=== PATIENT | female | born 1955 | race Caucasian/White ===

== ENCOUNTER 2023-11-01 06:52 | Day surgery (SDC) | payer MEDICARE, SELFPAY ==
[2023-10-30 11:48] VITALS: BMI 33.8
--- NOTE | 2023-10-30 11:56 | HO.ANESPROP2 ---
Documented by User: Day Turcios NP 10/30/23 11:56 HPI - Anesthesia Eval Consult details Narrative: 67yo F for Colonoscopy PMFSH Past Medical History Medical History PTSD (post-traumatic stress disorder) Anxiety HTN (hypertension) Surgical History Surgical History History of bunionectomy History of back surgery History of Hx of colonoscopy Hx of cataract extraction Hx of hysterectomy Social History Social History Patient Tobacco Use Status: Former Tobacco user Are you DNR?: No Advance Directives: No Advance Directives Information Provided: Yes Nutrition Risks: No Nutritional Risk Meds Allergies Allergy/AdvReac Type Severity Reaction Status Date / Time codeine Allergy Unknown Verified 11/01/23 07:18 sulfamethoxazole Allergy Unknown Verified 11/01/23 07:18 [From Bactrim] trimethoprim [From Bactrim] Allergy Unknown Verified 11/01/23 07:18 Home Medications ?Medication ?Instructions ?Recorded ?Confirmed ?Last Taken ?Type dextroamphetamine-amphetamine 20 20 mg PO DAILY 10/30/23 10/30/23 Unknown History mg tablet (Adderall) lorazepam 1 mg tablet 1 mg PO BID 10/30/23 10/30/23 Unknown History metoprolol tartrate 25 mg tablet 25 mg PO DAILY 10/30/23 10/30/23 11/01/23 History naltrexone 1.5 mg capsule mg PO 10/30/23 10/30/23 Unknown History sertraline 50 mg tablet (Zoloft) 50 mg PO DAILY 10/30/23 10/30/23 Unknown History Exam Height,Weight and Vital Signs: Height 5 ft 5 in Weight 92.079 kg Assessment and Plan Assessment Anesthesia Assessment: Chart Reviewed Documented by User: Blaine Cain MD 11/01/23 07:46 PMF Past Medical History Medical History PTSD (post-traumatic stress disorder) Anxiety HTN (hypertension) Family History Family history of problems with anesthesia: No Surgical History Surgical History History of bunionectomy History of back surgery History of Hx of colonoscopy Hx of cataract extraction Hx of hysterectomy History of Problems with Anesthesia: No Social History Social History Patient Tobacco Use Status: Former Tobacco user Are you DNR?: No Advance Directives: No Advance Directives Information Provided: Yes Nutrition Risks: No Nutritional Risk Meds Allergies Allergy/AdvReac Type Severity Reaction Status Date / Time codeine Allergy Unknown Verified 11/01/23 07:18 sulfamethoxazole Allergy Unknown Verified 11/01/23 07:18 [From Bactrim] trimethoprim [From Bactrim] Allergy Unknown Verified 11/01/23 07:18 Home Medications ?Medication ?Instructions ?Recorded ?Confirmed ?Last Taken ?Type dextroamphetamine-amphetamine 20 20 mg PO DAILY 10/30/23 10/30/23 Unknown History mg tablet (Adderall) lorazepam 1 mg tablet 1 mg PO BID 10/30/23 10/30/23 Unknown History metoprolol tartrate 25 mg tablet 25 mg PO DAILY 10/30/23 10/30/23 11/01/23 History naltrexone 1.5 mg capsule mg PO 10/30/23 10/30/23 Unknown History sertraline 50 mg tablet (Zoloft) 50 mg PO DAILY 10/30/23 10/30/23 Unknown History Exam Airway Mallampati Class: III TM Dist: <=3cm Neck ROM: Full Loose/Missing/Broken Teeth: No Heart: rrr Lungs: cta b/l Assessment and Plan Final Anesthetic Review Family History of Problems with Anesthesia: No History of Problems with Anesthesia: No NPO: Yes ASA Class: II and III Final Preanesthetic Review: No Changes in Pt Med Stat, Meds/Allgs Chart Reviewed, Consent Obtained/Reviewed and Anes Risks/Benef Reviewed Patient Risk: Intermediate Procedure Risk: Intermediate Anesthetic Plan Anesthetic Plan: MAC: Disposition: Standard PACU
[2023-11-01] MEDS: Lactated Ringers 1,000 ML 100 ML IVCONT (07:09)
[2023-11-01 07:18] VITALS: BMI 33.1
[2023-11-01 07:33] VITALS: BP 136/74; PULSE 87; RESP 18; TEMP 36.6; O2SAT 96
--- NOTE | 2023-11-01 08:16 | P.HPSUR_ITS ---
Pre-Procedural Eval Section A - 24 Hr Update-Section A only Date of Service: 11/01/23 Section B - Complete if H&P > 30 days Chief Complaint: Encounter for screening for malignant neoplasm of Details of Present Illness: see H&P no changes Relevant Family History (Specify if Yes): No Relevant Social History: None Present Medications: see Short Stay Collaborative assessment Medical History: No relevant PMH History of Previous Operations: No relevant previous surgery Allergies: Allergies Allergy/AdvReac Type Severity Reaction Status Date / Time codeine Allergy Unknown Verified 11/01/23 07:18 sulfamethoxazole Allergy Unknown Verified 11/01/23 07:18 [From Bactrim] trimethoprim [From Bactrim] Allergy Unknown Verified 11/01/23 07:18 Review of Systems Sugical H&P ROS: Negative: Constitution, Cardiovascular, Respiratory, N eurological, Psychiatric, Hem-Onc, Allergic/Immunologic, Gastrointestinal, Genitourinary, Musculoskeletal, Integumentary, Endocrine and Eyes/Ears/Nose/Throat Exam Surgical H&P Exam: Normal: HEENT, Normal: Heart, Normal: Lungs, Normal: Extremities, Normal: Abdomen, Normal: Skin and Normal: Neurological Plan Diagnosis/Plan: Unchanged I have reviewed the history and physical and performed a pertinent physical examination on my patient. No changes have occurred unless specified. Time Spent With Patient Time: Total time managing care of this patient today ____ minutes.
[2023-11-01 08:54] VITALS: BP 107/66; PULSE 69; RESP 18; TEMP 36.4; O2SAT 97
--- NOTE | 2023-11-01 09:29 | OP_ITS ---
DATE OF SERVICE: 11/01/2023 SURGEON: Ap Sánchez MD INDICATIONS: Colon cancer screening. PREOPERATIVE DIAGNOSIS: POSTOPERATIVE DIAGNOSIS: PROCEDURE PERFORMED: Colonoscopy to the terminal ileum with biopsy. ESTIMATED BLOOD LOSS: COMPLICATIONS: ANESTHESIA: Monitored anesthesia care. ASSISTANTS: SPECIMENS: DESCRIPTION OF PROCEDURE: History and physical was performed. The risks and benefits of the procedure were explained to the patient. Informed consent was obtained. The patient was placed in the left lateral decubitus position. A digital rectal exam was performed and was found to be normal. The Olympus pediatric video colonoscope was introduced into the rectum and advanced to the cecum. The cecum was identified by transillumination, palpation, and identification of ileocecal valve. Examination was performed. The scope was removed. She tolerated the procedure well and was returned to the recovery area in stable condition. FINDINGS: The terminal ileum was examined and appeared normal. The visualized colonic mucosa was normal. The quality of the prep was good. A single polyp measuring less than 5 mm was identified at 70 cm from the anal verge. This were removed with a biopsy forceps. In the rectum were several hyperplastic appearing polyps. 2 of these were biopsied. Retroflexed examination showed some small internal hemorrhoids. IMPRESSION: Colon polyps. RECOMMENDATION: Follow up the biopsy results. MD RAUL Patricio/JULIAN / [id number] MTDD
== END 2023-11-01 10:00 | disposition home or self-care (01) ==
PROVIDERS: PCP Internal Medicine; Visit Provider Internal Medicine Gastroenterology
PROC: 0DJD8ZZ Inspection of Lower Intestinal Tract, Via Natural or Artificial Opening Endoscopic (ICD-10-PCS; CPT 45378; principal; 2023-11-01 08:40)
DX: Z12.11 Encounter for screening for malignant neoplasm of colon (principal); I10 Essential (primary) hypertension; J45.909 Unspecified asthma, uncomplicated; F41.9 Anxiety disorder, unspecified; F43.10 Post-traumatic stress disorder, unspecified; Z79.899 Other long term (current) drug therapy; Z87.891 Personal history of nicotine dependence; Z98.890 Other specified postprocedural states; Z86.16 Personal history of COVID-19
CPT/HCPCS: G0121; 88305; J2704

== ENCOUNTER 2024-01-24 14:23 | Outpatient (AMB) | payer MEDICARE, SELFPAY ==
--- NOTE | 2024-01-24 14:26 | MHC.PC.OV ---
Vital Signs 01/24/24 14:39 Height 5 ft 5 in Weight 205 lb 6 oz BMI 34.2 BP 122/68 Blood Pressure Location Rt brachial Position Sitting Pulse 87 Pulse Source Pulse Oximeter Temp 97.7 F Temp Source Temporal Artery Scan Intake Visit Reasons: New pa Intake Note: new patient visit. 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 Is last menstrual period known: No Post menopausal: No Patient : No Allergies sulfamethoxazole [From Bactrim] Allergy (Verified 01/24/24 14:30) Unknown trimethoprim [From Bactrim] Allergy (Verified 01/24/24 14:30) Unknown Medication List - Last Reconciled 01/26/24 by Patti Cardona MD albuterol sulfate 90 mcg/actuation inhalation benzonatate 100 mg PO TID PRN codeine-guaifenesin 10-100 mg/5 mL 10 mL PO Q4-6H PRN dextroamphetamine-amphetamine 20 mg (Adderall) 20 mg PO DAILY fluticasone propion-salmeterol 232-14 mcg/actuation 1 inh inhalation BID lorazepam 1 mg PO BID metoprolol tartrate 25 mg PO DAILY naltrexone mg PO sertraline (Zoloft) 50 mg PO DAILY Tobacco use date assessed: 01/24/24 Fall risk assessment: 2 + Falls in past year Last assessed Fall Risk: 01/24/24 Dental Screening Dental Screen Date: 01/24/24 Did you have a dental visit in the last 12 months?: Yes Did you have a dental problem in the last 6 months where you did not have access to dental care?: No Was dental information given to patient?: Patient has dentist HPI HPI Comments History of Present Illness Details This is a 68 year old female with a past medical history of long haul COVID, hypertension, presenting for follow up Recently hospitalized at [facility] 01/07-01/11/24. Presented with shortness of breast x4 days that had started fairly upbruptly. She had been on a long flight no long before the start of symptoms. +wheezing, +cough. She was tachycardic satting 92% room air. no fevers. dyspneic. Started on IV solumedrol CTA negative for pneumonia, PE. Intermittent left chest pain. EKG unremarkable. Slight top bump which resolved. Transitioned to oral prednisone. continue flovent, albuterol prn. She is improving but slowly. Saw Dr Greco. Has had PFTs in past. OLAMIDE means --Acute infection: 10/2019. Hospitalized 11/2019 at [facility] [place] due to hypoxic rsp faiulre due to COVID pneumonia and persistent high fevers. 106F for days. Severe HAs, muscle pain. Discharged on supplemental 02 --Subacute: Prolonged 02 need. [place] like she had suffered a stroke. Weakness, slow. HAs, sore throats, myalgias. Had MRI brain TTE. 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 NAD EYES: EOMI. Anicteric. HENT: Moist mucous membranes. No scleral icterus. No cervical lymphadenopathy. LUNGS: Clear to auscultation bilaterally. CARDIOVASCULAR: Regular rate and rhythm. No murmur. No JVD. ABDOMEN: Soft, non-tender +bs EXTREMITIES: No edema. Non-tender. SKIN: No rashes or lesions. Warm. NEUROLOGIC: No focal neurological deficits. CN II-XII grossly intact PSYCHIATRIC: Cooperative. Appropriate mood and affect [facility] Medical History (Updated 01/24/24 @ 14:51 by Yvonne Santos) FH: cholecystectomy Cataract (lens) fragments in eye following cataract surgery, left eye PTSD (post-traumatic stress disorder) Anxiety HTN (hypertension) Surgical History (Updated 01/24/24 @ 14:43 by Patti Cardona MD) History of bunionectomy History of back surgery History of Hx of colonoscopy Hx of cataract extraction Hx of hysterectomy Family History (Updated 01/24/24 @ 14:55 by Yvonne Santos) Brother FH: mental illness Mother Asthma High blood pressure High cholesterol Cardiovascular disease Cancer Father High blood pressure High cholesterol Diabetes Cardiovascular disease Thyroid disease Cancer Social History Housing: House Patient Tobacco Use Status: Former Tobacco user Tobacco use type: Cigarette e-Cigarette/Vaping Use: Never Used Second Hand Smoke Exposure: No service: No Current occupational status: retired Current occupational exposures/hazards: No Cognitive needs: No Hearing needs: No Vision needs: No Questionnaire PHQ-9 Over the last 2 weeks, how often have you been bothered by any of the following problems? 1. Little interest or pleasure in doing things: several days 2. Feeling down, depressed, or hopeless: several days 3. Trouble falling or staying asleep, or sleeping too much: nearly every day 4. Feeling tired or having little energy: more than half the days 5. Poor appetite or overeating: not at all 6. Feeling bad about yourself - or that you are a failure or have let yourself or your family down: several days 7. Trouble concentrating on things, such as reading the newspaper or watching television: more than half the days 9. Thoughts that you would be better off or of hurting yourself in some way: not at all Depression Screening Interpretation: Positive Depression Screening Follow-up: Existing condition Depression Screening Done: Yes 94053 - PHQ-9 Billing: Yes Source: Developed by Drs. Bg Guevara, Sofia Calvillo, Blake Clifford and colleagues, with an educational patrick from [employer]. Thrive Questionnaire Date Thrive assessed: 01/24/24 I am a: Patient What is your living situation today?: I have a steady place to live Within the past 12 months, did the food you bought not last and you didn't have the money to get more?: Never true Within the past 12 months, did you worry whether your food would run out before you got money to buy more?: Never true Do you have trouble paying for medicines?: No Do you have trouble getting transportation to medical appointments?: No Do you have trouble paying your heating and electricity bill?: No Do you have trouble taking care of your child, family member or friend?: No Do you have trouble with day-to-day activities such as bathing, preparing meals, shopping, managing finances, etc.?: No Are you currently unemployed and looking for a job?: No Are you interested in more education?: No Please select the resources that you would like help with: None Currently or been in a relationship where the following occur: No concerns reported THRIVE Score: 0 AUDIT C Alcohol Use Questionnaire (AUDIT-C) 1. How often do you have a drink containing alcohol?: 2-4 times a month 2. How many drinks containing alcohol do you have on a typical day when you are drinking?: 1 or 2 3. How often do you have six or more drinks on one occasion?: Never Total Score: 2 SUMAN-7 AMB Questionnaire SUMAN-7 Feeling nervous, anxious, or on edge: 3 = Nearly every day Not being able to stop or control worryin = Nearly every day Worrying too much about different things: 3 = Nearly every day Trouble relaxin = Nearly every day Being so restless that it is hard to sit still: 3 = Nearly every day Becoming easily annoyed or irritable: 3 = Nearly every day Feeling afraid as if something awful might happen: 1 = Several days Total SUMAN-7 score (0-4 normal; 5-9 mild; 10-14 moderate; 15-21 severe): 19 Source: Developed by Drs. Bg Guevara, Sofia Calvillo, Blake Clifford and colleagues, with an educational patrick from [employer]. SUMAN-7 Assessment Billing SUMAN-7 Assessment Tool: SUMAN-7 Assessment 17761 ACT Questionnaire In the past 4 weeks, how much of the time did your asthma keep you from getting as much done at work, school or at home?: All of the time During the past 4 weeks, how often have you had shortness of breath?: Once a day During the past 4 weeks, how often did your asthma symptoms wake you up at night or earlier than usual in the morning?: 4 or more nights a week During the past 4 weeks, how often have you had to use your rescue inhaler or nebulizer medication?: More than 3 times per day How would you rate your asthma control during the past 4 weeks?: Somewhat controlled Score: 8 Physical exam (Primary Care) Vital Signs: Last Vital Signs Temp 97.7 F 01/24/24 14:39 Pulse 87 01/24/24 14:39 BP 122/68 01/24/24 14:39 BMI result Body Mass Index 34.2 Tobacco/Smoking Status: Tobacco use Status Tobacco use date assessed 01/24/24 01/24/24 14:34 Patient Tobacco Use Status Former Tobacco user 01/24/24 14:34 Tobacco use type Cigarette 01/24/24 14:34 e-Cigarette/Vaping Use Never Used 01/24/24 14:34 Depression Screening Interpretation: Positive Depression Screening Follow-up: Existing condition Thrive Assessment: Date of Thrive Assessment Date Thrive assessed 01/24/24 01/24/24 14:47 Currently or been in a relationship where the following occur: No concerns reported Assessment and Plan Assessment & Plan (1) Anxiety: Code(s): F41.9 - Anxiety disorder, unspecified (2) HTN (hypertension): Code(s): I10 - Essential (primary) hypertension (3) COVID-19 german hayessi: Code(s): U09.9 - Post COVID-19 condition, unspecified (4) Hospital discharge follow-up: Code(s): Z09 - Encounter for follow-up examination after completed treatment for conditions other than malignant neoplasm Plan Hospitalization reviewed. Chart updated. Robitussin with codeine. Refilled tessalon perles. continue flovent, prn albuterol and follow up with pulmonary as needed Medications: New codeine-guaifenesin 10-100 mg/5 mL 10 mL PO Q4-6H PRN 200 mL 0RF cough benzonatate 100 mg PO TID PRN 30 caps 0RF cough Coding Level of Care Code TCM Mod MDM <= 14 Days Diagnoses Anxiety F41.9 HTN (hypertension) I10 COVID-19 german means U09.9 Hospital discharge follow-up Z09 Additional Codes SUMAN-7 Assessment Billing - SUMAN-7 Assessment Tool: SUMAN-7 Assessment [id number] ([id number])
[2024-01-24 14:39] VITALS: BP 122/68; PULSE 87; TEMP 36.5; BMI 34.2
== END 2024-01-24 15:14 | disposition home or self-care (01) ==
PROVIDERS: PCP Internal Medicine; Visit Provider Internal Medicine
DX: I10 Essential (primary) hypertension (principal); F41.9 Anxiety disorder, unspecified; U09.9 Post COVID-19 condition, unspecified; Z09 Encounter for follow-up examination after completed treatment for conditions other than malignant neoplasm
CPT/HCPCS: 99214

== ENCOUNTER 2024-07-03 10:56 | Outpatient (AMB) | payer MEDICARE, SELFPAY ==
--- NOTE | 2024-07-03 11:10 | MHC.PC.OV ---
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: No Allergies sulfamethoxazole [From Bactrim] Allergy (Verified 07/03/24 11:10) Unknown trimethoprim [From Bactrim] Allergy (Verified 07/03/24 11:10) Unknown Medication List - Last Reconciled 07/03/24 by Patti Cardona MD albuterol sulfate 90 mcg/actuation inhalation dextroamphetamine-amphetamine 20 mg (Adderall) 20 mg PO DAILY diclofenac sodium 75 mg PO BID PRN fluticasone propion-salmeterol 232-14 mcg/actuation 1 inh inhalation BID lorazepam 1 mg PO BID metoprolol tartrate 12.5 mg PO DAILY naltrexone mg PO sertraline (Zoloft) 50 mg PO DAILY Tobacco use date assessed: 01/24/24 Dental Screening Dental Screen Date: 01/24/24 HPI HPI Comments History of Present Illness Details This is a 68 year old female with a past medical history of long haul COVID, hypertension, presenting for AWV She was feeling going up until a month ago-was going to the In the past 2-3 weeks has had COVID reactivation-increased deep joint pain. On LDN-would be interested in increased dose COVID german rowleyyessi --Acute infection: 10/2019. Hospitalized 11/2019 at [facility] [place] due to hypoxic rsp faiulre due to COVID pneumonia and persistent high fevers. 106F for days. Severe HAs, muscle pain. Discharged on supplemental 02 --Subacute: Prolonged 02 need. [place] like she had suffered a stroke. Weakness, slow. HAs, sore throats, myalgias. Had MRI brain TTE. 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 Stable on current medications Hospitalized [facility] 01/07-01/11/24. Presented with shortness of breast x4 days that had started fairly upbruptly. She had been on a long flight no long before the start of symptoms. +wheezing, +cough. She was tachycardic satting 92% room air. no fevers. dyspneic. Started on IV solumedrol CTA negative for pneumonia, PE. Intermittent left chest pain. EKG unremarkable. Slight top bump which resolved. Transitioned to oral prednisone. continue flovent, albuterol prn. She is improving but slowly. Saw Dr Greco. Has had PFTs in past. LDCT 2022 Mammo UTD Colon cancer screening [facility] Care team updated- Neurologist, Dr Go has retired. Psych-Dr Christian ADAIR reviewed. No interval changes. Independent ADLs Poor exercise tolerance ROS see HPI PHYSICAL EXAM: GENERAL: Alert and oriented x 3. NAD EYES: EOMI. Anicteric. HENT: Moist mucous membranes. No scleral icterus. No cervical lymphadenopathy. LUNGS: Clear to auscultation bilaterally. CARDIOVASCULAR: Regular rate and rhythm. No murmur. No JVD. ABDOMEN: Soft, non-tender +bs EXTREMITIES: No edema. Non-tender. SKIN: No rashes or lesions. Warm. NEUROLOGIC: No focal neurological deficits. CN II-XII grossly intact PSYCHIATRIC: Cooperative. Appropriate mood and affect PFSH Medical History FH: cholecystectomy Cataract (lens) fragments in eye following cataract surgery, left eye PTSD (post-traumatic stress disorder) Anxiety HTN (hypertension) Surgical History History of bunionectomy History of back surgery History of Hx of colonoscopy Hx of cataract extraction Hx of hysterectomy Family History Brother FH: mental illness Mother Asthma High blood pressure High cholesterol Cardiovascular disease Cancer Father High blood pressure High cholesterol Diabetes Cardiovascular disease Thyroid disease Cancer Social History Housing: House Alcohol intake: current Patient Tobacco Use Status: Former Tobacco user Tobacco use type: Cigarette e-Cigarette/Vaping Use: Never Used Second Hand Smoke Exposure: No service: No Current occupational status: retired Current occupational exposures/hazards: No Cognitive needs: No Hearing needs: No Vision needs: No Questionnaire Thrive Questionnaire Date Thrive assessed: 01/24/24 Physical exam (Primary Care) Tobacco/Smoking Status: Tobacco use Status Tobacco use date assessed 01/24/24 07/03/24 11:12 Patient Tobacco Use Status Former Tobacco user 07/03/24 11:18 Tobacco use type Cigarette 07/03/24 11:18 e-Cigarette/Vaping Use Never Used 07/03/24 11:18 Thrive Assessment: Date of Thrive Assessment Date Thrive assessed 01/24/24 07/03/24 11:12 Coding Level of Care Code Est Pt Level 4 (90773) Diagnoses Encounter for annual wellness visit (AWV) in Medicare patient Z00.00 COVID-19 german means U09.9 Assessment & Plan Assessment & Plan (1) Encounter for annual wellness visit (AWV) in Medicare patient: Code(s): Z00.00 - Encounter for general adult medical examination without abnormal findings Category: Medical Plan: Care team updated HRA reviewed Fall risk negative To scanning (2) COVID-19 german means: Code(s): U09.9 - Post COVID-19 condition, unspecified Category: Medical Plan: Prednisone x one week Increase LDN Medications: New [naltrexone] 3 mg PO DAILY 3 ea 3RF post covid fatigue 90 days prednisone 40 mg (2 x 20 mg) PO DAILY 10 tabs 0RF 5 days
--- OUTSIDE RECORDS SUMMARY | 2024-07-08 07:46 | XMS_ITS ---
Author Organization [facility] Address [address] [place] [phone] Care Team Providers Care Fire Apparatus Sprinkler Inspector Name Role Phone Patti Cardona M.D. Primary Care Provider Unavail Ap Valdez Jr Unavailable ALLERGIES Allergen (clinical drug ingredient) Drug/Non Drug Allergy documented on EMR Reaction Allergy Type Onset Date Status codeine Codeine Sulfate Unknown Drug Allergy A ctive sulfamethoxazole / trimethoprim Bactrim Unknown Drug Allergy Active REASON FOR VISIT Patient presents today for a recall colonoscopy MEDICATIONS Medication SIG (Take, Route, Frequency, Duration) Notes Start Date End Date Status Metoprolol Tartrate 25 MG Oral for 90 Active Adderall 20 MG 1 tablet Orally Tw day 08/26/2023 Active MiraLax (colon prep) 17 GM/SCOOP mixed with Gatorade or Crystal Light Orally begin at 5:00 p.m. the day before the procedure for 1 day 08/26/2023 Active Naltrexone HCl (Pain) 1.5 MG as directed Orally 08/26/2023 Active Zoloft 50 MG 1 tablet Orally Once a day for 30 day(s) Active Ativan 1 MG 1 tablet at bedtime as needed Orally Once a day Active SOCIAL HISTORY Tobacco Use: Social History Observation Description Date Details (start date - stop date) Former Smoker NA - NA Sex Assigned At : Social History Observation Description Sex Assigned At Unknown Tobacco Use/Smoking Question Answer Notes Patient is a former smoker When did you stop smoking? 6 years ago How long has it been since you last smoked? 5-10 years Alcohol Screen Question Answer Notes Did you have a drink containing alcohol in the p ast year? No Points 0 Interpretation Negative VITAL SIGNS BMI 33.78 kg/m2 08/26/2023 Blood pressure systolic 000 mm Hg 08/26/19 24 Blood pressure diastolic 00 mm Hg 024 Height 65 in 08/26/2023 Temperature 97.7 degrees Fahrenheit 08/26/19 24 Weight 203 lbs 08/26/2023 Encounters Encounter Location Date Provider Diagnosis [facility] [address] [place] [address] 08/26/2023 Ap Sánchez Jr Colon cancer screening Z12.11 and Encounter for other preprocedural examination Z01.818 ASSESSMENTS Encounter Date Diagnosis Assessment Notes Treatment Notes Treatment Clinical Notes 08/26/2023 Colon cancer screening (ICD-10 - Z12.11) Colonoscopy material was printed 08/26/2023 Encounter for other preprocedural examination (ICD-10 - Z01.818) PLAN OF TREATMENT Medication Medication Name Sig Start Date Stop Date Notes MiraLax (colon prep) 17 GM/SCOOP mixed with Gatorade or Crystal Light Orally begin at 5:00 p.m. the day before the procedure for 1 day 08/26/2023 Treatment Notes Assessment Notes Colon cancer screening Colonoscopy mater ial was printed Future Test Test Name Order Date COLONOSCOPY 08/26/2023 Next Appt Details Follow Up: 1 Year, Reason: Progress Notes * Examination Category Sub-Category Detail Notes General Examination GENERAL APPEARANCE: in no ac kimberlyn distress HEAD: normocephalic EYES: sclera non-icteric NECK/THYROID: no lymphadenopathy HEART: S1, S2 normal, no mu rmurs CHEST: normal shape and exp ansion LUNGS: clear to auscultatio n bilaterally ABDOMEN: soft, nontender, non distended, bowel sounds present, no organomegaly SKIN: anicteric EXTREMITIES: no clubbing, cyanosi s, or edema PSYCH: cognitive function i ntact ORAL CAVITY: mucosa moist
--- OUTSIDE RECORDS SUMMARY | 2024-07-08 07:46 | XMS_ITS | Patient Health Record ---
Author Organization [facility] Address [address] [place] [phone] Care Team Providers Care Stage Electrician Name Role Phone Patti Cardona M.D. Primary Care Provider Ap De La Torre Jr Unavailable ALLERGIES Allergen (clinical drug ingredient) Drug/Non Drug Allergy documented on EMR Reaction Allergy Type Onset Date Status codeine Codeine Sulfate Unknown Drug Allergy A ctive sulfamethoxazole / trimethoprim Bactrim Unknown Drug Allergy Active RESULTS Component Value Reference Range Notes Pathology Reviewed date:11/20/2023 08:53:25 AM Interpretation: Performing Lab:[facility], [address] [place] [id number] Notes/Report: REASON FOR REFERRAL No Information MEDICATIONS Medication SIG (Take, Route, Frequency, Duration) Notes Start Date End Date Status Metoprolol Tartrate 25 MG Oral for 90 Active Zoloft 50 MG 1 tablet Orally Once a day for 30 day(s) Active Adderall 20 MG 1 tablet Orally Tw day 08/26/2023 Active Ativan 1 MG 1 tablet at bedtime as needed Orally Once a day Active MiraLax (colon prep) 17 GM/SCOOP mixed with Gatorade or Crystal Light Orally begin at 5:00 p.m. the day before the procedure for 1 day 08/26/2023 Active Naltrexone HCl (Pain) 1.5 MG as directed Orally 08/26/2023 Active IMMUNIZATIONS Vaccine Route Administration Date Status Comme nts Influenza Unknown 07/29/2023 Administered SOCIAL HISTORY Tobacco Use: Social History Observation [...] ast year? No Points 0 Interpretation Negative PROBLEMS Problem Type ICD Code Onset Dates Problem Status W/U Status Risk SNOMED Code Notes Problem Colon cancer screening (Z12.11) Active confirmed [id number] Problem Encounter for other preprocedural examination (Z01.818) Active confirmed [id number] VITAL SIGNS Temperature 97.7 degrees Fahrenheit 08/26/2023 Blood pressure diastolic 00 mm Hg 08/26/2023 Height 65 in 08/26/2023 Blood pressure systolic 000 mm Hg 08/26/2023 Weight 203 lbs 08/26/2023 BMI 33.78 kg/m2 08/26/2023 Encounters Encounter Location Date Provider Diagnosis [facility] [address], [place] [id number] 11/01/2023 Ap Sánchez Jr Encounter for screening colonoscopy Z12.11 and Colon polyps K63.5 [facility] [address] [place] [phone] 08/26/2023 Ap Sánchez Jr Colon cancer screening Z12.11 and Encounter for other preprocedural examination Z01.818 [facility] [address] [facility] [address] [place] [phone] 11/18/2023 Ap Sánchez Jr ASSESSMENTS Encounter Date Diagnosis Assessment Notes Treatment Notes Treatment Clinical Notes 11/01/2023 Encounter for screening colonoscopy (ICD-10 - Z12.11) 11/01/2023 Colon polyps (ICD-10 - K63.5) 08/26/2023 Colon cancer screening (ICD-10 - Z12.11) Colonoscopy material was printed 08/26/2023 Encounter for other preprocedural examination (ICD-10 - Z01.818) PLAN OF TREATMENT Future Test Test Name Order Date COLONOSCOPY 06/04/2019 COLONOSCOPY 08/26/2023 Insurance Providers Payer Name Payer Address Payer Phone Subscriber Number Group Number Insured Name Patient Relationship to Insured Coverage Start Date Coverage End Date [facility] [address] [place] [phone] [id number] YELITZA RESENDEZ Self - patient is the insured MEDICAL (GENERAL) HISTORY Medical History History ICD Code Hypertension Asthma Covid 19 infection, chronic neurologic a nd muscular symptoms Anxiety/depression, PTSD Colonoscopy 06/06 normal, ten-year follo wup Surgical History Surgery Date(Month/Year) hysterectomy back surgery section bunion cataract surgery Hospitalization History Reason Date(Month/Year) due to covid 2020
--- OUTSIDE RECORDS SUMMARY | 2024-07-08 07:46 | XMS_ITS ---
Author Organization [facility] Address [address] [place] [phone] Care Team Providers Care Bench Jeweler Name Role Phone Patti Cardona M.D. Primary Care Provider Unavail Ap Valdez Jr Unavailable REASON FOR VISIT screening Encounters Encounter Location Date Provider Diagnosis [facility] [address] [place] [phone] 11/01/2023 Ap Sánchez Jr Encounter for screening colonoscopy Z12.11 and Colon polyps K63.5 ASSESSMENTS Encounter Date Diagnosis Assessment Notes Treatment Notes Treatment Clinical Notes 11/01/2023 Encounter for screening colonoscopy (ICD-10 - Z12.11) 11/01/2023 Colon polyps (ICD-10 - K63.5) PLAN OF TREATMENT No Information
--- OUTSIDE RECORDS SUMMARY | 2024-07-08 07:46 | XMS_ITS ---
Author Organization [facility] Address [address] [place] [phone] Care Team Providers Care Soil Science Teacher Name Role Phone Patti Cardona M.D. Primary Care Provider Unavail Ap Valdez Jr Unavailable [phone] REASON FOR VISIT looking for results Encounters Encounter Location Date Provider Diagnosis [facility] [address] [place] [phone] 11/18/2023 Ap Sánchez Jr PLAN OF TREATMENT No Information
== END 2024-07-03 11:51 | disposition home or self-care (01) ==
PROVIDERS: PCP Internal Medicine; Visit Provider Internal Medicine
DX: Z00.00 Encounter for general adult medical examination without abnormal findings (principal); U09.9 Post COVID-19 condition, unspecified

== ENCOUNTER → 2024-07-03 10:56 | Outpatient (BNVA) | payer MEDICARE, SELFPAY | PROVIDERS: PCP Internal Medicine; Visit Provider Internal Medicine | DX: Z00.00 Encounter for general adult medical examination without abnormal findings (principal); U09.9 Post COVID-19 condition, unspecified | CPT/HCPCS: 99212 ==

== ENCOUNTER 2024-10-23 11:11 | Outpatient (AMB) | payer MEDICARE, SELFPAY ==
--- NOTE | 2024-10-23 11:31 | A.OFFPC_ITS ---
Vital Signs 3 10/23/24 11:34 Height 5 ft 5 in Weight 200 lb BMI 33.3 BP 104/64 Blood Pressure Location Rt brachial Position Sitting Respiration 12 Pulse 74 Pulse Source Pulse Oximeter Temp 98.3 F Temp Source Oral Pulse Oximetry (%) 98 Oxygen Delivery Method Room Air Intake Visit Reasons: Stitching remove Intake Note: Patient here to remove stitches. Mending Carrier Required: No Allergies sulfamethoxazole [From Bactrim] Allergy (Verified 10/23/24 11:31) Unknown trimethoprim [From Bactrim] Allergy (Verified 10/23/24 11:31) Unknown Medication List - Last Reconciled 10/23/24 by Yusra Julio, TAFFY CANDY MAKER- albuterol sulfate 90 mcg/actuation inhalation dextroamphetamine-amphetamine 20 mg (Adderall) 20 mg PO DAILY diclofenac sodium 75 mg PO BID PRN fluticasone propion-salmeterol 232-14 mcg/actuation 1 inh inhalation BID lorazepam 1 mg PO BID metoprolol tartrate 12.5 mg PO DAILY naltrexone mg PO [naltrexone 3 mg PO DAILY 90 days] prednisone 40 mg (2 x 20 mg) PO DAILY 5 days sertraline (Zoloft) 50 mg PO DAILY Tobacco use date assessed: 10/23/24 Fall risk assessment: 2 + Falls in past year Last assessed Fall Risk: 10/23/24 Dental Screening Dental Screen Date: 10/23/24 Did you have a dental visit in the last 12 months?: Yes Did you have a dental problem in the last 6 months where you did not have access to dental care?: No Was dental information given to patient?: Patient has dentist HPI HPI Comments 2 History of Present Illness0 Details History - The patient is a 68-year-old female pr esenting for suture removal left index finger s/p dog bite on Saturday She is UTD on Tdap Had 8 sutures placed RX for AB, started but did not complete d/t GI upset Denies signs of 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 Txt to Ortho for heads up and recs; will see early next week; the ortho team will arrange for this she should keep finger clean and dry monitor for s/sx of infection Consent Patient was informed and verbally consented to the use of an ambient scribe for clinic note documentation during this visit. Total time spent caring for the patient today was 30 minutes. This includes time spent before the visit reviewing the chart, time spent during the visit, and time spent after the visit on documentation, reviewing laboratory results, diagnostic imaging, medications, performing a medically necessary evaluation, counseling on diagnoses, care coordination, ordering appropriate tests, ordering appropriate medications, review of tests performed by other providers, reporting test results with the patient, communication with other healthcare providers. Exam: Radial pulse intact No drainage from lacs or sx of infection 8 sutures removed w/o incident; TAB and DCD applied discoloration to tip of finger pain over knuckle w/ palpation w/ some edema PFSH Medical History FH: cholecystectomy Cataract (lens) fragments in eye following cataract surgery, left eye PTSD (post-traumatic stress disorder) Anxiety HTN (hypertension) Surgical History History of bunionectomy History of back surgery History of Hx of colonoscopy Hx of cataract extraction Hx of hysterectomy Family History Brother FH: mental illness Mother Asthma High blood pressure High cholesterol Cardiovascular disease Cancer Father High blood pressure High cholesterol Diabetes Cardiovascular disease Thyroid disease Cancer Social History Housing: House Alcohol intake: current Patient Tobacco Use Status: Former Tobacco user Tobacco use type: Cigarette e-Cigarette/Vaping Use: Never Used Second Hand Smoke Exposure: No service: No Current occupational status: retired Current occupational exposures/hazards: No Cognitive needs: No Hearing needs: No Vision needs: No Questionnaire PHQ-9 Over the last 2 weeks, how often have you been bothered by any of the following problems? 1. Little interest or pleasure in doing things: not at all 2. Feeling down, depressed, or hopeless: not at all 3. Trouble falling or staying asleep, or sleeping too much: more than half the days 4. Feeling tired or having little energy: more than half the days 5. Poor appetite or overeating: not at all 6. Feeling bad about yourself - or that you are a failure or have let yourself or your family down: not at all 7. Trouble concentrating on things, such as reading the newspaper or watching television: several days 8. Moving or speaking so slowly that other people could have noticed. Or the opposite - being so fidgety or restless that you have been moving around a lot more than usual: not at all 9. Thoughts that you would be better off or of hurting yourself in some way: not at all Total score: 5 57888 - PHQ-9 Billing: Yes Source: Developed by Drs. Bg Guevara, Sofia Calvillo, Blake Clifford and colleagues, with an educational patrick from [employer]. Thrive Questionnaire Date Thrive assessed: 10/23/24 I am a: Patient What is your living situation today?: I have a steady place to live Within the past 12 months, did the food you bought not last and you didn't have the money to get more?: Never true Within the past 12 months, did you worry whether your food would run out before you got money to buy more?: Never true Do you have trouble paying for medicines?: No Do you have trouble getting transportation to medical appointments?: No Do you have trouble paying your heating and electricity bill?: No Do you have trouble taking care of your child, family member or friend?: No Do you have trouble with day-to-day activities such as bathing, preparing meals, shopping, managing finances, etc.?: No Are you currently unemployed and looking for a job?: I choose not to answer this question Are you interested in more education?: No Please select the resources that you would like help with: None Currently or been in a relationship where the following occur: No concerns reported THRIVE Score: 0 AUDIT C Alcohol Use Questionnaire (AUDIT-C) 1. How often do you have a drink containing alcohol?: Monthly or less 2. How many drinks containing alcohol do you have on a typical day when you are drinking?: 1 or 2 3. How often do you have six or more drinks on one occasion?: Never Total Score: 1 SUMAN-7 AMB Questionnaire SUMAN-7 Date SUMAN - 7 assessed: 10/23/24 Feeling nervous, anxious, or on edge: 0 = Not at all Not being able to stop or control worryin = Several days Worrying too much about different things: 1 = Several days Trouble relaxin = Several days Being so restless that it is hard to sit still: 1 = Several days Becoming easily annoyed or irritable: 1 = Several days Feeling afraid as if something awful might happen: 0 = Not at all Total SUMAN-7 score (0-4 normal; 5-9 mild; 10-14 moderate; 15-21 severe): 5 Source: Developed by Drs. Bg Guevara, Sofia Calvillo, Blake Clifford and colleagues, with an educational patrick from [employer]. SUMAN-7 Assessment Billing SUMAN-7 Assessment Tool: SUMAN-7 Assessment 25166 Physical exam (Primary Care) Vital Signs: Last Vital Signs Temp 98.3 F 10/23/24 11:34 Pulse 74 10/23/24 11:34 Resp 12 10/23/24 11:34 BP 104/64 10/23/24 11:34 Pulse Ox 98 10/23/24 11:34 Oxygen Delivery Method Room Air 10/23/24 11:34 BMI result Body Mass Index 33.3 Tobacco/Smoking Status: Tobacco use Status Tobacco use date assessed 10/23/24 10/23/24 11:34 Patient Tobacco Use Status Former Tobacco user 10/23/24 11:34 Tobacco use type Cigarette 10/23/24 11:34 e-Cigarette/Vaping Use Never Used 10/23/24 11:34 PHQ-9: PHQ-9 Score PHQ-9: Total score 5 10/23/24 12:23 Thrive Assessment: Date of Thrive Assessment Date Thrive assessed 10/23/24 10/23/24 11:34 Currently or been in a relationship where the following occur: No concerns reported Coding Level of Care Code Est Pt Level 4 (44658) Complex EM visit Add On G2211 Diagnoses Dog bite of finger, subsequent encounter S61.259D; W54.0XXD Encounter type: subsequent encounter Visit for suture removal Z48.02 Additional Codes SUMAN-7 Assessment Billing - SUMAN-7 Assessment Tool: SUMAN-7 Assessment 38396 ([id number]) PHQ-9 - 10916 - PHQ-9 Billing: Yes ([id number]) Assessment & Plan Assessment & Plan (1) Dog bite of finger: Code(s): S61.259A - Open bite of unspecified finger without damage to nail, initial encounter; W54.0XXA - Bitten by dog, initial encounter Category: Medical Qualifiers: Encounter type: subsequent encounter Qualified Code(s): S61.259D - Open bite of unspecified finger without damage to nail, subsequent encounter; W54.0XXD - Bitten by dog, subsequent encounter (2) Visit for suture removal: Code(s): Z48.02 - Encounter for removal of sutures Category: Medical Plan . Orders: Referrals 2 Hand Surgery Referral S61.259A - Open bite of unspecified finger without damage to nail, initial encounter, W54.0XXA - Bitten by dog, initial encounter
[2024-10-23 11:34] VITALS: BP 104/64; PULSE 74; RESP 12; TEMP 36.8; O2SAT 98; BMI 33.3
== END 2024-10-23 14:05 | disposition home or self-care (01) ==
LOC: HO.HMCFM 11:12
PROVIDERS: PCP Internal Medicine; Visit Provider Nurse Practitioner Family
DX: S61.259D Open bite of unspecified finger without damage to nail, subsequent encounter (principal); W54.0XXD Bitten by dog, subsequent encounter; Z48.02 Encounter for removal of sutures

== ENCOUNTER → 2024-10-23 11:11 | Outpatient (BNVA) | payer MEDICARE, SELFPAY | PROVIDERS: PCP Internal Medicine; Visit Provider Nurse Practitioner Family | DX: Z48.02 Encounter for removal of sutures (principal); S61.251D Open bite of left index finger without damage to nail, subsequent encounter; W54.0XXD Bitten by dog, subsequent encounter | CPT/HCPCS: 96127; 99212 ==

== ENCOUNTER 2024-10-27 09:45 | Outpatient (AMB) | payer MEDICARE, SELFPAY ==
--- NOTE | 2024-10-27 10:06 | A.OFFVIS_ITS ---
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 States she volunteered for [employer] and while working with the dog she was bite. States she was seen at [facility] ED where she received 8 stitches which was removed 10/23/24 with her PCP. Currently states she has swelling, she is not able to bend her finger, shooting pain to her DIP. She also has numbness and tingling which she did not have prior to injury. Xrays updated in office. She is currently taking ABX. 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 She was seen in the [facility] ED and sutured. Her sutures were removed by her PCP on 10/23/24. She has been taking keflex. She complains of pain, swelling, and an inability to bend her index finger fully. She has less pain to her middle & ring fingers She also says she has new numbness in her index finger, which was not present before her injury. 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 [facility] Medical History FH: cholecystectomy Cataract (lens) fragments in eye following cataract surgery, left eye PTSD (post-traumatic stress disorder) Anxiety HTN (hypertension) Surgical History History of bunionectomy History of back surgery History of Hx of colonoscopy Hx of cataract extraction Hx of hysterectomy Family History Brother FH: mental illness Mother Asthma High blood pressure High cholesterol Cardiovascular disease Cancer Father High blood pressure High cholesterol Diabetes Cardiovascular disease Thyroid disease Cancer Social History Housing: House Alcohol intake: current Patient Tobacco Use Status: Former Tobacco user Tobacco use type: Cigarette e-Cigarette/Vaping Use: Never Used Second Hand Smoke Exposure: No service: No Current occupational status: retired 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 Current occupational exposures/hazards: No Cognitive needs: No Hearing needs: No Vision needs: No Review of Systems Const All systems reviewed & are unremarkable except as noted in HPI and below Physical Exam Vital Signs: BMI result Body Mass Index 32.4 Const General: cooperative, healthy appearing and no acute distress Orientation/consciousness: patient oriented x3 HEENT Head: Yes normocephalic and Yes atraumatic Eyes EOM: EOMs intact bilaterally Resp Effort & Inspection: normal respiratory effort and able to speak in complete sentences Cardio Jugular venous distension: no JVD Skin General skin exam: turgor normal Rashes: no rashes Neuro General: patient oriented x3 Extrem Other: Evaluation of Upper Extremity: The patient is alert, oriented, and in no acute distress Neuro: Median, Ulnar, Radial nerves motor and sensory intact and sensation is normal to the tips of all digits, except for some decreased subjective sensation to the radial digital nerve distribution of the index finger Vascular: Cap refill brisk ROM: She can make a fist and extend all her digits Good FDS & FDP tendon function to all fingers Skin: She has ~3-4 bite wounds to the volar radial side of the index finger One on the volar radial side of the middle finger, just proximal to DIP joint Dorsal side of the ring finger, just proximal to DIP joint General: No Ecchymosis. No Erythema or evidence of infection. Radiographs: 3 views of the left hand were taken and viewed by me today in clinic. They show only a possible nondisplaced fracture of the ulnar base of the distal phalanx of the left index finger. Otherwise no fractures or dislocatons Psych Appearance: grossly normal Affect: normal affect Attitude: cooperative Assessment & Plan Assessment & Plan (1) Dog bite of finger: Comment: L IF, MF, RF Code(s): S61.259A - Open bite of unspecified finger without damage to nail, initial enco unter; W54.0XXA - Bitten by dog, initial encounter Category: Medical Qualifiers: Encounter type: subsequent encounter Qualified Code(s): S61.259D - Open bite of unspecified finger without damage to nail, subsequent encounter; W54.0XXD - Bitten by dog, subsequent encounter (2) Numbness and tingling in left hand: Comment: L IF Code(s): R20.0 - Anesthesia of skin; R20.2 - Paresthesia of skin Category: Medical Plan Assessment & Plan: 1. Left index, middle, and ring finger dog bite injuries, DOI: 10/16/24 Sutured in ED Sutures removed by PCP 10/23/24 2. Left index finger numbness, acute Began following dog bite injury Improving with time She appears to be healing well with no evidence of infection today. No operative indications today. I educated her about proper wound care I explained the signs and symptoms of infection, if the patient develops any new or worsening erythema, drainage, pain, or warmth they should contact the clinic or attend the ED. She will continue to take her Abx as instructed She can cover this when out of the house but should leave this open to the air to remain dry. She can apply some Abx ointment. I discussed activity modifications, she is to lift nothing heavier than a cellphone for the next 2 weeks She will perform gentle ROM exercises at home She should avoid any underwater activities for the next 3 days She should gently massage about the incision site to reduce the risk of hypersensitivity She can follow up prn Scribed for Lisa Campbell MD by Robert Linares, medical technologist chief, on 10/27/24 at 10:15 AM, EST. Orders: Orders XR hand LT min 3V Today M79.642 - Pain in left hand Coding Level of Care Code New Pt Level 3 (75778) Diagnoses Dog bite of finger, subsequent encounter S61.259D; W54.0XXD Encounter type: subsequent encounter Numbness and tingling in left hand R20.0; R20.2
[2024-10-27 10:08] VITALS: BMI 32.4
--- OUTSIDE RECORDS SUMMARY | 2024-10-27 11:14 | XMS_ITS ---
Author Organization [facility] Address [address] [place] [phone] Care Team Providers Care Metal Checker Name Role Phone Dulce Vickers, Patti Primary Care Provider Ap De La Torre Jr REASON FOR VISIT screening Encounters Encounter Location Date Provider Diagnosis [facility] [place] [facility] [address] [place] [phone] 11/01/2023 Ap Sánchez Jr Encounter for screening colonoscopy Z12.11 and Colon polyps K63.5 Assessments Encounter Date Diagnosis (ICD Code) Assessment Notes Treatment Notes Treatment Clinical Notes Section Notes 11/01/2023 Encounter for screening colonoscopy (ICD-10 - Z12.11) 11/01/2023 Colon polyps (ICD-10 - K63.5) Plan Of Treatment No Information Progress Notes * YELITZA RESENDEZDOB:1955 (68 yo F)Acc No.[id number]:11/01/2023 COLON WITH MAC Patient:?RICHIEJOHNYELITZA Provider:?Ap Sánchez MD :1955???Age:68 Y???Sex:Female D ate:11/01/2023 Address:[address] [place] [address] Pcp:Patti Cardona M.D. Subjective: * Chief Complaints: * ???1. Screening. * Medical History:? Objective: * Vitals:? Assessment: * Assessment: 1.?Encounter for screening c olonoscopy - Z12.11 (Primary)???2.?Colon polyps - K63.5??? Plan: * Treatment: * Procedure Codes:?72621 COLON OSCOPY AND BIOPSY * * The named appointment provid er may or may not be the originator of this progress note, and it is not deemed complete until electronically signed by the appointment provider. Sign off status: Pending * Provider:?Ap Sánchez MD Date:?0 11/01/2023 Generated for Fito long/Radha/Zelda on:?10/27/2024 11:14 AM EDT
--- OUTSIDE RECORDS SUMMARY | 2024-10-27 11:14 | XMS_ITS | Clinical Summary ---
Author Organization [facility] Address [address] [place] [address] Phone Care Team Providers Care Corporate Communications Associate Name Role Phone Patti Cardona MD Primary Care Provider [phone] Encounters Date Type Department Care Team Description 10/17/2024 7:32 AM EDT - 10/17/2024 11:59 PM EDT Hospital Encounter [facility] CT Scan [address] [place] [phone] Encounter for screening for malignant neoplasm of respiratory organs; Personal history of nicotine dependence Discharge Disposition: Home or Self Care 09/29/2024 Telephone Lung Screening Program - [place] [address] [phone] Marlyn Calvillo [place] Appointment (1st Notification) 09/23/2024 2:14 PM EST - 09/23/2024 11:59 PM EST Hospital Encounter [facility] at [address] [phone] Encounter for screening mammogram for breast cancer Discharge Disposition: Home or Self Care from Last 3 Months Family History Medical History Relation Name Comments Breast cancer Maternal Grandmother Relation Name Status Comments Maternal Grandmother Social History Tobacco Use Types Packs/Day Years Used Date Smoking Tobacco: Never Assessed Comments No Sex and Gender Information Value Date Recorded Sex Assigned at Female 09/18/2024 11:48 AM EST Legal Sex Female 8:12 PM EST Gender Identity Female 09/18/2024 11:48 AM EST Sexual Orientation Choose not to disclose 2024 11:48 AM EST Obstetrics History Para Term AB IAB SAB Ectopic Multiple Livin g Live Births 3 Last Filed Vital Signs Vital Sign Reading Time Taken Comments Blood Pressure - - Pulse - - Temperature - - Respiratory Rate - - Oxygen Saturation - - Inhaled Oxygen Concentration - - Weight 88.5 kg (195 lb) 09/23/2024 2:34 PM EST Height 165.1 cm (5' 5 ) 09/23/2024 2:34 PM EST Body Mass Index 32.45 09/23/2024 2:34 PM EST Plan of Treatment Health Maintenance Due Date Last Done Comments RSV Immunization Patients 60+ Years Old (1 - Risk 60-74 years 1-dose series) 2017 Cholesterol Screening (Lipid Panel) 06/30/2022 Colorectal Cancer Screening: Colonoscopy 06/30/2022 Depression Screening 06/30/2022 Hepatitis C Screening 06/30/2022 Medicare Annual Wellness Visit 06/30/2022 Osteoporosis Screening (Bone Density Screening) 06/30/2022 Social Influencers of Health Screening 06/30/2022 Falls Risk Assessment 2022 COVID-19 Vaccine ( season) 2024 10/10/2020, 09/17/2020, 08/30/2020 Hypertension/CHF/CAD Annual BMP Blood Test 09/23/2024 Breast Cancer Screening 09/23/2026 09/23/19, 08/19/2023, 07/25/2022, Additional history exists DTaP,Tdap,and Td Vaccines (2 - Td or Tdap) 10/16/2034 10/16/2024 Zoster Vaccines Completed 06/12/2021, 0807/2020, 03/27/2021 Pneumococcal Vaccine: 50+ Years Completed 04/26/2023, 12/02/2019 Influenza Vaccine Completed 09/04/2024, , 03/28/2020 HIB Vaccines Aged Out No longer eligi ble based on patient's age to complete this topic HPV Vaccines Aged Out No longer eligi ble based on patient's age to complete this topic Hepatitis A Vaccines Aged Out No long er eligible based on patient's age to complete this topic Hepatitis B Vaccines Aged Out No long er eligible based on patient's age to complete this topic IPV Vaccines Aged Out No longer eligi ble based on patient's age to complete this topic MMR Vaccines Aged Out No longer eligi ble based on patient's age to complete this topic Meningococcal ACWY Vaccine Aged Out N o longer eligible based on patient's age to complete this topic Meningococcal B Vacine Aged Out No lo nger eligible based on patient's age to complete this topic RSV Immunization Patients Under 20 months Aged Out No longer eligible based on patient's age to complete this topic Varicella Vaccines Aged Out No longer eligible based on patient's age to complete this topic Procedures Procedure Name Priority Date/Time Associated Diagnosis Comments CT LUNG SCREENING Routine 10/17/2024 7:3 9 AM EDT Encounter for screening for malignant neoplasm of respiratory organs Personal history of nicotine dependence MG MAMMO DIGITAL SCREENING W LUCIANO BILAT Routine 09/23/2024 2:50 PM EST Encounter for screening mammogram for breast cancer from Last 3 Months Results * CT Lung Screening (10/17/2024 7:39 AM EDT) Anatomical Region Laterality Modality Chest Computed Tomogra phy 10/19/2024 9:37 AM EDT Impressions 10/19/2024 9:49 AM EDT Impression: No suspicious developing pulmonary nodule. No significant change. Lung-RADS Category: ??Lung-RADS 2: Nodule(s) with benign appearance or behavior. Continue annual screening with Low Dose Chest CT in 12 months. Telerad BREANNA ([id number]) -------- FINAL REPORT -------- Dictated By: Muna Giraldo Dictated Date: 10/19/2024 09:37 ET Assigned Physician: Muna Giraldo Reviewed and Electronically Signed By: Muna Giraldo Signed Date: 10/19/2024 09:49 ET Workstation ID: [id number] Transcribed By: Self Edit Transcribed Date: 10/19/2024 09:37 ET Narrative 10/19/2024 9:49 AM EDT History: ??68 year-old 42 pack-year former smoker, asymptomatic, for lung cancer screening. Quit smoking 12 years ago. Comparison: 10/13/23 Technique: Helical volumetric imaging of the thorax was performed, using low- dose technique, without IV contrast. DLP: 153.48 mGy/cm ??CTDIvol: 4.83 mGy GE Linkpasspeed VCT Iterative reconstruction technique Findings: Lungs and Airways: The trachea and central bronchial tree remains patent. Rather homogeneously calcified nodules are consistent with old granulomatous disease. Few scattered sub-4 mm solid, noncalcified nodules are unchanged. No suspicious developing nodule is seen. Pleura: No pleural or pericardial effusions are identified. Base of neck, mediastinum and heart: The heart remains normal in size. Minimal atherosclerotic calcification is seen in the aortic arch. A 10 mm peripherally calcified nodule in the right thyroid lobe is again noted. No developing thoracic lymphadenopathy is seen. Soft tissues: The overlying soft tissues are unremarkable. Abdomen: This study was performed without contrast and with lower than standard dose. These factors reduce the sensitivity for detection of small lesions in the upper abdomen. Cholecystectomy clips are noted. Procedure Note Muna Giraldo MD - 10/19/2024 History: 68 year-old 42 pack-year former smoker, asymptomatic, for lungcancer screening. Quit smoking 12 years ago. Comparison: 10/13/23 Technique: Helical volumetric imaging of the thorax was performed, usinglow-dose technique, without IV contrast. DLP: 153.48 mGy/cm CTDIvol: 4.83 mGy BotanoCappeed VCT Iterative reconstruction technique Findings: Lungs and Airways: The trachea and central bronchial tree remains patent.Rather homogeneously calcified nodules are consistent with oldgranulomatous disease. Few scattered sub-4 mm solid, noncalcified nodulesare unchanged. No suspicious developing nodule is seen. Pleura: No pleural or pericardial effusions are identified. Base of neck, mediastinum and heart: The heart remains normal in size.Minimal atherosclerotic calcification is seen in the aortic arch. A 10 mmperipherally calcified nodule in the right thyroid lobe is again noted. Nodeveloping thoracic lymphadenopathy is seen. Soft tissues: The overlying soft tissues are unremarkable. Abdomen: This study was performed without contrast and with lower thanstandard dose. These factors reduce the sensitivity for detection of smalllesions in the upper abdomen. Cholecystectomy clips are noted. IMPRESSION: Impression: No suspicious developing pulmonary nodule. No significant change. Lung-RADS Category: Lung-RADS 2: Nodule(s) with benign appearance orbehavior. Continue annual screening with Low Dose Chest CT in 12 months. Telerad PA ([id number]) -------- FINAL REPORT -------- Dictated By: Muna Giraldo Dictated Date: 10/19/2024 09:37 ET Assigned Physician: Muna Giraldo Reviewed and Electronically Signed By: Muna Giraldo Signed Date: 10/19/2024 09:49 ET Workstation ID: [id number] Transcribed By: Self Edit Transcribed Date: 10/19/2024 09:37 ET us Sunita Denney MD IMG CT PROCEDURES Final Result * [facility] Mammo Digital Screening w Luciano bilat (09/23/2024 2:50 PM EST) Anatomical Region Laterality Modality Breast Bilateral Mammography 09/23/2024 5:36 PM EST Impressions 09/23/2024 5:43 PM EST No mammographic evidence of malignancy. ?? No suspicious interval change. A negative mammogram in the presence of a clinically suspicious palpable abnormality does not preclude the possibility of malignancy or alter the indications for biopsy. ASSESSMENT: ?? BI-RADS 1: NEGATIVE RECOMMENDATION(S): 1: Routine screening mammogram BILATERAL in 1 year. -------- FINAL REPORT -------- Dictated By: Charlie Suresh Dictated Date: 09/23/2024 17:36 ET Assigned Physician: Charlie Suresh Reviewed and Electronically Signed By: Charlie Suresh Signed Date: 09/23/2024 17:43 ET Workstation ID: [id number] Transcribed By: Self Edit Transcribed Date: 09/23/2024 17:36 ET Narrative 09/23/2024 5:43 PM EST EXAM: ??SCREENING MAMMOGRAPHY, BILATERAL HISTORY: ??SCREENING. ??Maternal grandmother with history of breast cancer. COMPARISON: ??08/19/2023, 07/25/2022, 07/20/2021, 06/17/2020 TECHNIQUE: Synthesized CC and MLO projections of each breast. ??Tomosynthesis of each breast in the CC and MLO projections. ADDITIONAL IMAGING: None Computer-aided detection was employed with the iCAD ??profound AI 3-D. TISSUE DENSITY: There are scattered areas of fibroglandular density. (BI-RADS category B) FINDINGS: RIGHT BREAST: No suspicious mass. No suspicious calcification. No distortion. ?? No additional suspicious right breast findings LEFT BREAST: No suspicious mass. No suspicious calcification. No distortion. ?? No additional suspicious left breast findings Procedure Note Charlie Suresh MD - 09/23/2024 EXAM: SCREENING MAMMOGRAPHY, BILATERAL HISTORY: SCREENING. Maternal grandmother with history of breastcancer. COMPARISON: 08/19/2023, 07/25/2022, 07/20/2021, 06/17/2020 TECHNIQUE: Synthesized CC and MLO projections of each breast.Tomosynthesis of each breast in the CC and MLO projections. ADDITIONAL IMAGING: None Computer-aided detection was employed with the iCAD profound AI 3-D. TISSUE DENSITY: There are scattered areas of fibroglandular density.(BI-RADS category B) FINDINGS: RIGHT BREAST: No suspicious mass. No suspicious calcification. No distortion. Noadditional suspicious right breast findings LEFT BREAST: No suspicious mass. No suspicious calcification. No distortion. Noadditional suspicious left breast findings IMPRESSION: No mammographic evidence of malignancy. No suspicious interval change. A negative mammogram in the presence of a clinically suspicious palpableabnormality does not preclude the possibility of malignancy or alter theindications for biopsy. ASSESSMENT: BI-RADS 1: NEGATIVE RECOMMENDATION(S): 1: Routine screening mammogram BILATERAL in 1 year. -------- FINAL REPORT -------- Dictated By: Charlie Suresh Dictated Date: 09/23/2024 17:36 ET Assigned Physician: Charlie Suresh Reviewed and Electronically Signed By: Charlie Suresh Signed Date: 09/23/2024 17:43 ET Workstation ID: [id number] Transcribed By: Self Edit Transcribed Date: 09/23/2024 17:36 ET us Self Referral Sppl IMG BI PROCEDURES Final Resul t from Last 3 Months Insurance [employer] Care Teams Corporate Communications Associate Relationship Specialty Start Date End Date Patti Cardona MD [address] [place] [id number] PCP - General Internal Medicine 09/23/24
--- OUTSIDE RECORDS SUMMARY | 2024-10-27 11:14 | XMS_ITS ---
Author Organization [facility] Address [address] [place] [phone] Care Team Providers Care Watermelon Harvesting Supervisor Name Role Phone Patti Cardona M.D. Primary Care Provider Ap De La Torre Jr REASON FOR VISIT looking for results Encounters Encounter Location Date Provider Diagnosis [facility] [address] [place] [phone] 11/18/2023 Ap Sánchez Jr Plan Of Treatment No Information Progress Notes * YELITZA RESENDEZDOB:1955 (68 yo F)Acc No.[id number]:11/18/2023 Patient:?YELITZA RESENDEZ :1955???Age:68 Y???Sex:Female Address:[address] [place] [phone] * true * Date:? Generated for Fito long/Radha/eTransmitting on:?10/27/2024 11:14 AM EDT
--- OUTSIDE RECORDS SUMMARY | 2024-10-27 11:14 | XMS_ITS | Patient Health Record ---
Author Organization [facility] Address [address] [place] [phone] Care Team Providers Care Cottage Parent Name Role Phone Patti Cardona M.D. Primary Care Provider Ap De La Torre Jr Allergies Allergen (clinical drug ingredient) Drug/Non Drug Allergy documented on EMR Reaction Allergy Type Onset Date Status codeine Codeine Sulfate Unknown Drug Allergy A ctive sulfamethoxazole / trimethoprim Bactrim Unknown Drug Allergy Active Results Component Value Reference Range Notes Pathology Reviewed date:11/20/2023 08:53:25 AM Interpretation: Performing Lab:[facility], [address] [place] [phone] Notes/Report: Name: Monica Kingna Age/Sex: 68/F : 1955 Unit#: [id number] Attend Dr: Ap Sánchez MD Re11/01/23 Status : [facility] Location: [facility] Disch: SPEC : [id number] RECD : 11/01/23 STATUS: IMANI BALES NUM: [id number] JOSÉ ANTONIO: 11/01/[address] [facility] [address]: Ap Sánchez MD ENTERED: 11/01/23 TYPE: Surgical OTHR DR: Patti Cardona ORDERED: HE Stain/6, Gross Micro L4/2 Diagnosis A. Colon, at 70 cm, polyp: Tubular adenoma; negative for high-grade dysplasia and carcinoma. B. Colon, rectal katya yps: Hyperplastic polyps (2 pieces). Clinical History Pre-Op Dx: Screening Post-Op Dx: Colon polyps Microscopic Description Microscopic sections reviewed. Material Received A. Polyp at 70 cm B. Rectal polyps Gross Description Received in 2 parts. Part A: Received in formalin labeled ?polyp at 70 cm? are 2 arzate-pink irregular tissue fragments each measu ring 0.25 cm, submitted in toto in a cassette labeled A. Part B: Received in formalin labeled ?rectal polyps? are 3 keller-arzate irregular tissue fragments ranging fr om 0.15-0.2 cm, submitted in toto in a cassette labeled B. CEDS Copies To: Ap Sánchez MD [address] [place] [address] [address] [place] [address] Patti Cardona [address] [place], [place] [id number] CONTINUED ON NEXT PAGE Name: Carolyn King Age/Sex: 68/F : 1955 Unit#: [id number] Attend Dr: Ap Sánchez MD Re11/01/23 Status : [facility] Location: [facility] Disch: SPEC : [id number] RECD : 11/01/23 STATUS: IMANI BALES NUM: [id number] JOSÉ ANTONIO: 11/01/[address] [facility] [address]: Ap Sánchez MD ENTERED: 11/01/23 SP TYPE: Surgical OTHR DR: Patti Cardona ORDERED: STEFFANY Stain/6, Gross Micro L4/2 Copies To: (Continued) [email or web address] Signed (si [email or web address] on file) Gloria Gooden 11/04/23 1247 END OF REPORT Reason For Referral No Information Medications Medication SIG (Take, Route, Frequency, Duration) Notes Start Date End Date Status Metoprolol Tartrate 25 MG Oral for 90 Active Zoloft 50 MG 1 tablet Orally Once a day for 30 day(s) Active Adderall 20 MG 1 tablet Orally [facility] day 08/26/2023 Active Ativan 1 MG 1 tablet at bedtime as needed Orally Once a day Active MiraLax (colon prep) 17 GM/SCOOP mixed with Gatorade or Crystal Light Orally begin at 5:00 p.m. the day before the procedure for 1 day 08/26/2023 Active Naltrexone HCl (Pain) 1.5 MG as directed Orally 08/26/2023 Active Immunizations Vaccine Route Administration Date Status Comme nts Influenza Unknown 07/29/2023 Administered Social History Tobacco Use: Social History Observation Description Date Details (start date - stop date) Former Smoker NA - NA Tobacco Use/Smoking Question Answer Notes Patient is a former smoker When did you stop smoking? 6 years ago How long has it been since you last smoked? 5-10 years Alcohol Screen Question Answer Notes Did you have a drink containing alcohol in the p ast year? No Points 0 Interpretation Negative Section Notes: very occasional glass of win e very occasional glass of win e Problems Problem Type SNOMED Code ICD Code Onset Dates Problem Status W/U Status Risk Notes Problem 434501668 Colon cancer screening (Z12.11) Active confirmed Problem 181641475 Encounter for other preprocedural examination (Z01.818) Active confirmed Encounters Encounter Location Date Provider Diagnosis [facility] Outpatient [address] [place], [place] [phone] 11/01/2023 Ap Sánchez Jr Encounter for screening colonoscopy Z12.11 and Colon polyps K63.5 [facility] [address] [place] [address] 11/18/2023 Ap Sánchez Jr Assessments Encounter Date Diagnosis (ICD Code) Assessment Notes Treatment Notes Treatment Clinical Notes Section Notes 11/01/2023 Encounter for screening colonoscopy (ICD-10 - Z12.11) 11/01/2023 Colon polyps (ICD-10 - K63.5) Plan Of Treatment Future Test Test Name Order Date COLONOSCOPY 06/04/2019 COLONOSCOPY 08/26/2023 Insurance Providers Payer Name Payer Address Payer Phone Subscriber Number Group Number Insured Name Patient Relationship to Insured Coverage Start Date Coverage End Date [facility] [address] [place] [phone] [id number] CAROLYN KING Self - patient is the insured Medical (General) History Medical History History ICD Code Hypertension Asthma Covid 19 infection, chronic neurologic a nd muscular symptoms Anxiety/depression, PTSD Colonoscopy 06/06 normal, ten-year follo wup Surgical History Surgery Date(Month/Year) hysterectomy back surgery section bunion cataract surgery Hospitalization History Reason Date(Month/Year) due to covid 2020
--- OUTSIDE RECORDS SUMMARY | 2024-10-27 11:14 | XMS_ITS ---
Author Organization [facility] Address [address] [place] [phone] Care Team Providers Care Percussion Instrument Tuner Name Role Phone Patti Cardona M.D. Primary Care Provider Unavail Ap Valdez Jr Unavailable Allergies Allergen (clinical drug ingredient) Drug/Non Drug Allergy documented on EMR Reaction Allergy Type Onset Date Status codeine Codeine Sulfate Unknown Drug Allergy A ctive sulfamethoxazole / trimethoprim Bactrim Unknown Drug Allergy Active REASON FOR VISIT Patient presents today for a recall colonoscopy Medications Medication SIG (Take, Route, Frequency, Duration) Notes Start Date End Date Status Metoprolol Tartrate 25 MG Oral for 90 Active Adderall 20 MG 1 tablet Orally Twic a day 08/26/2023 Active MiraLax (colon prep) 17 [...] as needed Orally Once a day Active Social History Tobacco Use: Social History Observation [...] Notes: very occasional glass of win e Vital Signs Temperature 97.7 degrees Fahrenheit 01/29/20 24 Blood pressure systolic 000 mm Hg 08/26/19 24 Blood pressure diastolic 00 mm Hg 024 Height 65 in 08/26/2023 Weight 203 lbs 08/26/2023 BMI 33.78 kg/m2 08/26/2023 Encounters Encounter Location Date Provider Diagnosis [facility] [address] [place] [phone] 08/26/2023 Ap Sánchez Jr Colon cancer screening Z12.11 and Encounter for other preprocedural examination Z01.818 Assessments Encounter Date Diagnosis (ICD Code) Assessment Notes Treatment Notes Treatment Clinical Notes Section Notes 08/26/2023 Colon cancer screening (ICD-10 - Z12.11) Colonoscopy material was printed We discussed colonoscopy today including risks and benefits of the procedure. She understands these and agrees to proceed. She will be scheduled at her convenience. 08/26/2023 Encounter for other preprocedural examination (ICD-10 - Z01.818) We discussed colonoscopy today including risks and benefits of the procedure. She understands these and agrees to proceed. She will be scheduled at her convenience. Plan Of Treatment Medication Medication Name Sig Start Date Stop [...] Up: 1 Year, Reason: Progress Notes * RICHIEJOHNYELITZADOB:1955 (67 yo F)Acc No.[id number]:08/26/2023 Progress Notes Patient:?YELITZA RESENDEZ Provider:?Ap Sánchez MD :1955???Age:67 Y???Sex:Female D ate:08/26/2023 Address:[address] [place], [place] [id number] Pcp:Patti Cardona M.D. Subjective: * Chief Complaints: * ???1. Patient presents today for a recall colonoscopy. * HPI: ???New symptom(s):? Rosy is a pleasant 67-year-old woman seen today in consultation. She has no complaints of rectal bleeding or change in her bowel habits. Weight and appetite have been stable. She underwent colonoscopy in 2008 which was normal and she is overdue for followup. * ROS:?General/Constitutional:?Change in appetite?denies.?Fatigue?denies.?ENT:?Patient denies?difficulty swallowing.?Respiratory:?Patient denies?shortness of breath.?Cardiovascular:?Patient denies?chest pain.?Gastrointestinal:?Comments?See HPI for details.?Genitourinary:?Difficulty urinating?denies.?Incontinence?denies.?Musculoskeletal:?Patient denies?muscle aches.?Skin:?Patient denies?pruritis.?Neurologic:?Patient denies?low back pain.?Psychiatric:?Patient denies?mental or physical abuse.? * Medical History:?Hypertensio n, Asthma, Covid 19 infection, chronic neurologic and muscular symptoms, Anxiety/depression, PTSD, Colonoscopy 06/06 normal, ten-year followup. * Surgical History:?hysterecto my , back surgery , section , bunion , cataract surgery . * Hospitalization/Major Diagno stic Procedure:?due to covid 2019. * Family History:?Father: dece ased.?Mother: alive.? first cousin colon cancer. No liver cancer in family. * Social History:?Tobacco Use:?Tobacco Use/Smoking?Patient is a?former smoker,?When did you stop smoking??6 years ago,?How long has it been since you last smoked??5-10 years.?Drugs/Alcohol:?Alcohol Screen?Did you have a drink containing alcohol in the past year??No,?Points?0,?Interpretation?Negative.?Miscellaneous:?Marital status: . 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 ???very occasional glass of wine. * Medications:?Taking Ativan 1 MG Tablet 1 tablet at bedtime as needed Orally Once a day, Taking Zoloft 50 MG Tablet 1 tablet Orally Once a day, Taking Metoprolol Tartrate 25 MG Tablet Oral , Taking Adderall 20 MG Tablet 1 tablet Orally Twice a day, Taking Naltrexone HCl (Pain) 1.5 MG Capsule as directed Orally , Discontinued MiraLax (colon prep) 8.3 ounce ((238) grams mixed with Gatorade or Crystal Light orally begin at 5:00 p.m. the day before the procedure, Medication List reviewed and reconciled with the patient * Allergies:?Codeine Sulfate, Bactrim. Objective: * Vitals:?Wt: 203 lbs, Ht: 65 in, BMI:33.78 Index, BP: 000/00 mm Hg, Temp: 97.7. * Examination: ???General Examination: ?GENERAL APPEARANCE:?in no acute distress.?HEAD:?normocephalic.?EYES:?sclera non-icteric.?ORAL CAVITY:?mucosa moist.?NECK/THYROID:?no lymphadenopathy.?SKIN:?anicteric.?HEART:?S1, S2 normal, no murmurs.?LUNGS:?clear to auscultation bilaterally.?CHEST:?normal shape and expansion.?ABDOMEN:?soft, nontender, nondistended, bowel sounds present, no organomegaly .?EXTREMITIES:?no clubbing, cyanosis, or edema.?PSYCH:?cognitive function intact.? Assessment: * Assessment: 1.?Encounter for other prepr ocedural examination - Z01.818 (Primary)?2.?Colon cancer screening - Z12.11? We discussed colonoscopy tod dante including risks and benefits of the procedure. She understands these and agrees to proceed. She will be scheduled at her convenience. Plan: * Treatment: * Procedure Codes:?3017F COLOR ECTAL CA SCREEN DOC REV, G9744 PATIENT NOT ELIG D/T ACTIVE DX HTN * Preventive Medicine:? ??Counseling:?Care goal follow-up plan:?Above Normal BMI Follow-up?Giving encouragement to exercise,?BMI management provided?Yes.? ??Urinary Incontinence:?Urinary Incontinence?Assessment:?Absent,?Plan of care documented:?No, reason not specified.? * Follow Up:?1 Year * * Sign off status: Completed true * Provider:?Ap Sánchez MD Date:?0 08/26/2023 Generated for Fito long/Radha/Lindaitting on:?10/27/2024 11:14 AM EDT History and Physical Notes * HPI (History of Present Illness) Category Sub-Category Detail Notes Category Not es New symptom(s) Rosy is a p leasant 67-year-old woman seen today in consultation. She has no complaints of rectal bleeding or change in her bowel habits. Weight and appetite have been stable. She underwent colonoscopy in 2008 which was normal and she is overdue for followup. Examination Category Sub-Category Detail Notes Category Not es General Examination GENERAL APPEARANCE: in no acute di stress HEAD: normocephalic EYES: sclera non-icteric NECK/THYROID: no lymphadenopathy HEART: S1, S2 normal, no mu rmurs CHEST: normal shape and exp ansion LUNGS: clear to auscultatio n bilaterally ABDOMEN: soft, nontender, non distended, bowel sounds present, no organomegaly SKIN: anicteric EXTREMITIES: no clubbing, cyanosi s, or edema PSYCH: cognitive function i ntact ORAL CAVITY: mucosa moist
== END 2024-10-27 10:38 | disposition home or self-care (01) ==
LOC: HO.HOS 09:46
PROVIDERS: PCP Internal Medicine; Visit Provider Orthopaedic Surgery
DX: S61.259D Open bite of unspecified finger without damage to nail, subsequent encounter (principal); W54.0XXD Bitten by dog, subsequent encounter; R20.0 Anesthesia of skin; R20.2 Paresthesia of skin
CPT/HCPCS: 99203

== ENCOUNTER → 2024-10-27 09:47 | Outpatient (BNV) | payer MEDICARE, SELFPAY | PROVIDERS: Visit Provider Radiology Diagnostic Radiology | DX: M79.642 Pain in left hand (principal) | CPT/HCPCS: 73130 ==

== ENCOUNTER 2024-10-27 10:50 | Outpatient (REF) | payer MEDICARE, SELFPAY ==
--- NOTE | ~2024-10-27 | XR_ITS ---
EXAMINATION: XR HAND 3 OR MORE VIEWS LEFT HISTORY: M79.642 - Pain in left hand COMPARISON: There are no prior studies available for comparison. FINDINGS: Four views of the left hand are submitted. The bones are osteopenic. There is no fracture or dislocation. There is severe osteoarthritis of the 1st carpometacarpal joint, with joint space narrowing and osteophyte formation. There is mild narrowing of the DIP joints. The soft tissues are unremarkable. XR/XR hand LT min 3V IMPRESSION: Osteopenia. Osteoarthritis of the left hand as described. Electronically signed by: Bg Barroso MD 10/27/2024 01:50 PM EDT
--- OUTSIDE RECORDS SUMMARY | 2024-10-28 13:01 | XMS_ITS ---
Author Organization [facility] Address [address] [place] [phone] Care Team Providers Care Surgical Device Sales Representative Name Role Phone Dulce Vickers, Patti Primary Care Provider Ap De La Torre Jr REASON FOR VISIT screening Encounters Encounter Location Date Provider Diagnosis [facility] Outpatient [address] [place] [phone] 11/01/2023 Ap Sánchez Jr Encounter for screening colonoscopy Z12.11 and Colon polyps K63.5 Assessments Encounter Date Diagnosis (ICD Code) Assessment Notes Treatment Notes Treatment Clinical Notes Section Notes 11/01/2023 Encounter for screening colonoscopy (ICD-10 - Z12.11) 11/01/2023 Colon polyps (ICD-10 - K63.5) Plan Of Treatment No Information Progress Notes * YELITZA RESENDEZDOB:1955 (68 yo F)Acc No.[id number]:11/01/2023 COLON WITH MAC Patient:?RICHIEJOHNYELITZA Provider:?Ap Sánchez MD :1955???Age:68 Y???Sex:Female D ate:11/01/2023 Address:[address] [place] [address] Pcp:Patti Cardona M.D. Subjective: * Chief Complaints: * ???1. Screening. * Medical History:? Objective: * Vitals:? Assessment: * Assessment: 1.?Encounter for screening c olonoscopy - Z12.11 (Primary)???2.?Colon polyps - K63.5??? Plan: * Treatment: * Procedure Codes:?56785 COLON OSCOPY AND BIOPSY * * The named appointment provid er may or may not be the originator of this progress note, and it is not deemed complete until electronically signed by the appointment provider. Sign off status: Pending * Provider:?Ap Sánchez MD Date:?0 11/01/2023 Generated for Fito long/Radha/Zelda on:?10/28/2024 01:01 PM EDT
--- OUTSIDE RECORDS SUMMARY | 2024-10-28 13:01 | XMS_ITS | Clinical Summary ---
Author Organization [facility] Address [address] [place] [address] Phone Care Team Providers Care College Professor Name Role Phone Patti Cardona MD Primary Care Provider [phone] Encounters Date Type Department Care Team Description 10/17/2024 7:32 AM EDT - 10/17/2024 11:59 PM EDT Hospital Encounter [facility] CT Scan [address] [place] [phone] Encounter for screening for malignant neoplasm of respiratory organs; Personal history of nicotine dependence Discharge Disposition: Home or Self Care 09/29/2024 Telephone Lung Screening Program - [place] [address] [phone] Marlyn Calvillo [place] Appointment (1st Notification) 09/23/2024 2:14 PM EST - 09/23/2024 11:59 PM EST Hospital Encounter [facility] [address] [phone] Encounter for screening mammogram for breast cancer [...] Due Date Last Done Comments RSV Immunization Adult Patients (1 - Risk 60-74 years 1-dose series) [...] Tdap) 10/16/2034 10/16/2024 Zoster Vaccines Completed 06/12/2021, 02/28, 03/27/2021 Pneumococcal Vaccine: 50+ Years Completed 04/26/2023, [...] Chest CT in 12 months. [place] ([id number]) -------- FINAL REPORT -------- Dictated By: Muna Giraldo Dictated Date: 10/19/2024 09:37 ET Assigned Physician: Muna Giraldo Reviewed and Electronically Signed By: Muna Giraldo Signed Date: 10/19/2024 09:49 ET Workstation ID: [id number] Transcribed By: Self Edit Transcribed Date: 10/19/2024 09:37 ET Narrative 10/19/2024 9:49 AM EDT History: ??68 year-old 42 pack-year former smoker, asymptomatic, for lung cancer screening. Quit smoking 12 years ago. Comparison: 10/13/23 Technique: Helical volumetric imaging of the thorax was performed, using low- dose technique, without IV contrast. DLP: 153.48 mGy/cm ??CTDIvol: 4.83 mGy GE Enefgypeed VCT Iterative reconstruction technique Findings: Lungs and [...] contrast. DLP: 153.48 mGy/cm CTDIvol: 4.83 mGy Motwinpeed VCT Iterative reconstruction technique Findings: Lungs and [...] Chest CT in 12 months. Telerad PA ([id number]) -------- FINAL REPORT -------- Dictated By: Muna Giraldo Dictated Date: 10/19/2024 09:37 ET Assigned Physician: Muna Giraldo Reviewed and Electronically Signed By: Muna Giraldo Signed Date: 10/19/2024 09:49 ET Workstation ID: [id number] Transcribed By: Self Edit Transcribed Date: 10/19/2024 [...] Signed Date: 09/23/2024 17:43 ET Workstation ID: [id number] Transcribed By: Self Edit Transcribed Date: 09/23/2024 [...] Signed Date: 09/23/2024 17:43 ET Workstation ID: [id number] Transcribed By: Self Edit Transcribed Date: 09/23/2024 17:36 ET us Self Referral Sppl IMG BI PROCEDURES Final Resul t from Last 3 Months Insurance [employer] Care Teams College Professor Relationship Specialty Start Date End Date Patti Cardona MD [address] [place] [phone] PCP - General Internal Medicine 09/23/24
--- OUTSIDE RECORDS SUMMARY | 2024-10-28 13:01 | XMS_ITS | Patient Health Record ---
Author Organization [facility] Address [address] [place] [phone] Care Team Providers Care Prizer Hand Name Role Phone Patti Cardona M.D. Primary Care Provider Ap De La Torre Jr Allergies Allergen (clinical drug ingredient) Drug/Non Drug Allergy documented on EMR Reaction Allergy Type Onset Date Status codeine Codeine Sulfate Unknown Drug Allergy A ctive sulfamethoxazole / trimethoprim Bactrim Unknown Drug Allergy Active Results Component Value Reference Range Notes Pathology Reviewed date:11/20/2023 08:53:25 AM Interpretation: Performing Lab:[facility], [address] [place] [phone] Notes/Report: Name: Monica Kingna Age/Sex: 68/F : 1955 Unit#: [id number] Attend Dr: Ap Sánchez MD Re11/01/23 Status : [facility] Location: [facility] Disch: SPEC : [id number] RECD : 11/01/23 STATUS: IMANI BALES NUM: [id number] JOSÉ ANTONIO: 11/01/23 [facility] DR: Ap Sánchez MD ENTERED: 11/01/23 [...] B. CEDS Copies To: Ap Sánchez MD [address] [place] [address] [address] [place] [address] Patti Cardona [address] [place], [place] [phone] CONTINUED ON NEXT PAGE Name: Carolyn King Age/Sex: 68/F : 1955 Unit#: [id number] Attend Dr: Ap Sánchez MD Re11/01/23 Status : [facility] Location: [facility] Disch: SPEC : [id number] RECD : 11/01/23 STATUS: IMANI BALES NUM: [id number] JOSÉ ANTONIO: 11/01/23 [facility] DR: Ap Sánchez MD ENTERED: 11/01/23 SP TYPE: Surgical OTHR DR: Patti Cardona ORDERED: STEFFANY Stain/6, Gross Micro L4/2 Copies To: (Continued) [email or web address] Signed (si [email or web address] on file) Gloria Gooden 11/04/23 1247 END OF REPORT Reason For Referral No Information Medications Medication SIG (Take, Route, Frequency, Duration) Notes Start Date End Date Status Metoprolol Tartrate 25 MG Oral for 90 Active Zoloft 50 MG 1 tablet Orally Once a day for 30 day(s) Active Adderall 20 MG 1 tablet Orally [facility] day 08/26/2023 Active Ativan 1 MG [...] Problem Status W/U Status Risk Notes Problem [id number] Colon cancer screening (Z12.11) Active confirmed Problem [id number] Encounter for other preprocedural examination (Z01.818) Active confirmed Encounters Encounter Location Date Provider Diagnosis [facility] Outpatient [address] [place], [place] [phone] 11/01/2023 Ap Sánchez Jr Encounter for screening colonoscopy Z12.11 and Colon polyps K63.5 [facility] [address] [facility] [address] [place] [address] 11/18/2023 Ap Sánchez Jr Assessments Encounter Date [...] Insured Coverage Start Date Coverage End Date [facility] [address] [place] [phone] [id number] CAROLYN KING Self - patient is the insured Medical (General) History Medical History History ICD Code Hypertension Asthma Covid 19 infection, chronic neurologic a nd muscular symptoms Anxiety/depression, PTSD Colonoscopy 06/06 normal, ten-year follo wup Surgical History Surgery Date(Month/Year) hysterectomy back surgery section bunion cataract surgery Hospitalization History Reason Date(Month/Year) due to covid 2020
--- OUTSIDE RECORDS SUMMARY | 2024-10-28 13:01 | XMS_ITS ---
Author Organization [facility] Address [address] [place] [phone] Care Team Providers Care Semiconductor Packages Leak Tester Name Role Phone Patti Cardona M.D. Primary [...] [facility] [address] [place] [phone] 08/26/2023 Ap Sánchez Jr Colon cancer screening [...] Progress Notes * RICHIEJOHNYELITZADOB:1955 (67 yo F)Acc No.[id number]:08/26/2023 Progress Notes Patient:?YELITZA RESENDEZ Provider:?Ap Sánchez MD :1955???Age:67 Y???Sex:Female D ate:08/26/2023 Address:[address] [place], [place] [phone] Pcp:Patti Cardona M.D. Subjective: * Chief Complaints: [...] MD Date:?0 08/26/2023 Generated for Fito long/Radha/Lindaitting on:?10/28/2024 01:00 PM EDT History and Physical Notes * HPI [...]
--- OUTSIDE RECORDS SUMMARY | 2024-10-28 13:01 | XMS_ITS ---
Author Organization [facility] Address [address] [place] [phone] Care Team Providers Care Stripper Opaquer Name Role Phone Patti Cardona M.D. Primary Care Provider Ap De La Torre Jr REASON FOR VISIT looking for results Encounters Encounter Location Date Provider Diagnosis [facility] [address] [place] [phone] 11/18/2023 Ap Sánchez Jr Plan Of Treatment No Information Progress Notes * YELITZA RESENDEZDOB:1955 (68 yo F)Acc No.[id number]:11/18/2023 Patient:?YELITZA RESENDEZ :1955???Age:68 Y???Sex:Female Address:[address] [place] [phone] * true * Date:? Generated for Fito long/Radha/eTransmitting on:?10/28/2024 01:01 PM EDT
== END 2024-10-27 10:51 | disposition home or self-care (01) ==
LOC: HO.HOSX 10:50
PROVIDERS: Visit Provider Orthopaedic Surgery
DX: M79.642 Pain in left hand (principal); S61.251D Open bite of left index finger without damage to nail, subsequent encounter; R20.0 Anesthesia of skin; R20.2 Paresthesia of skin; M18.12 Unilateral primary osteoarthritis of first carpometacarpal joint, left hand; Z98.890 Other specified postprocedural states; W54.0XXD Bitten by dog, subsequent encounter
CPT/HCPCS: 73130; 99202

== ENCOUNTER 2024-12-08 15:06 | Outpatient (AMB) | payer MEDICARE, SELFPAY ==
[2024-12-08 15:14] VITALS: BMI 32.4
--- NOTE | 2024-12-08 15:14 | MHC.OFFVIS ---
Vital Signs 12/08/24 15:14 Height 5 ft 5 in Weight 195 lb BMI 32.4 Intake Visit Reasons: OV-LT hand, index finger DOI-10/16/24 Dog bite Intake Note: Carolyn 69 yr old female presents today for her follow up visit for her left hand index finger DOI 10/16/24 from a dog bite. At her last visit she was advised to lift nothing heavier than a cellphone for the next 2 weeks, perform gentle ROM exercises at home, avoid any underwater activities for the next 3 days, she should gently massage about the incision site to reduce the risk of hypersensitivity. Currently states she continues to have pain, limited ROM in her index finger and sensitivity. Allergies sulfamethoxazole [From Bactrim] Allergy (Verified 12/08/24 15:15) Unknown trimethoprim [From Bactrim] Allergy (Verified 12/08/24 15:15) Unknown HPI HPI OV-LT hand, index finger DOI-10/16/24 Dog bite: Details: Carolyn is a 69 year old right hand dominant woman who returns with complaints of left index finger pain & sensitivity. She is S/P left hand dog bite injury, DOI: 10/16/24. She complains of pain, limited ROM, and hypersensitivity to her index finger. She describes her pain as sharp and says it is impacting her use of her hand. She says at times she is able to touch her finger fine, and other times she cannot do so without pain. She says she still has some numbness to the radial aspect of her index finger, not really changing or improving since her last visit. 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 [facility] Medical History FH: cholecystectomy Cataract (lens) fragments in eye following cataract surgery, left eye PTSD (post-traumatic stress disorder) Anxiety HTN (hypertension) Surgical History History of bunionectomy History of back surgery History of Hx of colonoscopy Hx of cataract extraction Hx of hysterectomy Family History Brother FH: mental illness Mother Asthma High blood pressure High cholesterol Cardiovascular disease Cancer Father High blood pressure High cholesterol Diabetes Cardiovascular disease Thyroid disease Cancer Social History Housing: House Alcohol intake: current Patient Tobacco Use Status: Former Tobacco user Tobacco use type: Cigarette e-Cigarette/Vaping Use: Never Used Second Hand Smoke Exposure: No service: No Current occupational status: retired 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 Current occupational exposures/hazards: No Cognitive needs: No Hearing needs: No Vision needs: No Physical Exam Vital Signs: BMI result Body Mass Index 32.4 Extrem Other: Evaluation of Left Upper Extremity: The patient is alert, oriented, and in no acute distress Neuro: Median, Ulnar, Radial nerves motor and sensory intact and sensation is normal to the tips of all digits, except for some decreased subjective sensation to the radial digital nerve distribution of the index finger. Some improvement in sensation since last time Hypersensitivity to the entire index finger. Vascular: Cap refill brisk ROM: She can make a fist and extend all her digits Good FDS & FDP tendon function to all fingers Skin: She has ~3-4 bite wounds to the volar radial side of the index finger, all healed well with no erythema or evidence of infection Assessment & Plan Assessment & Plan (1) Hyperesthesia of scar of finger: Comment: L IF Code(s): R20.3 - Hyperesthesia; L90.5 - Scar conditions and fibrosis of skin Category: Medical (2) Dog bite of finger: Comment: L IF, MF, RF Code(s): S61.259A - Open bite of unspecified finger without damage to nail, initial encounter; W54.0XXA - Bitten by dog, initial encounter Category: Medical Qualifiers: Encounter type: subsequent encounter Qualified Code(s): S61.259D - Open bite of unspecified finger without damage to nail, subsequent encounter; W54.0XXD - Bitten by dog, subsequent encounter (3) Numbness and tingling in left hand: Comment: L IF Code(s): R20.0 - Anesthesia of skin; R20.2 - Paresthesia of skin Category: Medical Plan Assessment & Plan: 1. Left index, middle, and ring finger dog bite injuries, DOI: 10/16/24 Sutured in ED Sutures removed by PCP 10/23/24 2. Left index finger hypersensitivity 3. Left radial index finger numbness Began following dog bite injury Improving with time I educated her about these conditions She will perform gentle ROM exercises at home She should gently massage about the index finger to improve her hypersensitivity I ordered OT hand therapy to work on desensitization & normalizing function She can follow up in 4 weeks with BREANNA Davidson. She may cancel this if she is doing well. Scribed for Lisa Campbell MD by Robert Linares, lpn medical assistant, on 12/08/24 at 3:40 PM, EST. Orders: Orders OT Evaluation and Treatment Today L90.5 - Scar conditions and fibrosis of skin, R20.0 - Anesthesia of skin, R20.2 - Paresthesia of skin, R20.3 - Hyperesthesia, S61.259D - Open bite of unspecified finger without damage to nail, subsequent encounter, W54.0XXD - Bitten by dog, subsequent encounter Coding Level of Care Code Est Pt Level 3 (37992) Diagnoses Hyperesthesia of scar of finger R20.3; L90.5 Dog bite of finger, subsequent encounter S61.259D; W54.0XXD Encounter type: subsequent encounter Numbness and tingling in left hand R20.0; R20.2
--- OUTSIDE RECORDS SUMMARY | 2024-12-08 16:06 | XMS_ITS | Patient Health Record ---
Author Organization [facility] Address [address] [place] [address] Care Team Providers Care Historical Society Director Name Role Phone Patti Cardona M.D. Primary Care Provider Darci Sánchez Jr Ap Unavailable [phone] Allergies Allergen (clinical drug ingredient) Drug/Non Drug Allergy documented on EMR Reaction Allergy Type Onset Date Status codeine Codeine Sulfate Unknown Drug Allergy A ctive sulfamethoxazole / trimethoprim Bactrim Unknown Drug Allergy Active Reason For Referral No Information Medications Medication SIG (Take, Route, Frequency, Duration) Notes Start Date End Date Status Metoprolol Tartrate 25 MG Oral for 90 Active Zoloft 50 MG 1 tablet Orally Once a day for 30 day(s) Active Adderall 20 MG 1 tablet Orally Twic e a day 08/26/2023 Active Ativan 1 MG 1 [...] Problem Status W/U Status Risk Notes Problem [id number] Colon cancer screening (Z12.11) Active confirmed Problem 570097232 Encounter for other preprocedural examination (Z01.818) Active confirmed Plan Of Treatment Future Test Test Name Order Date COLONOSCOPY 06/04/2019 COLONOSCOPY 08/26/2023 Insurance Providers Payer Name Payer Address Payer Phone Subscriber Number Group Number Insured Name Patient Relationship to Insured Coverage Start Date Coverage End Date [facility] [address] [address] [place] [phone] [id number] YELITZA RESENDEZ Self - patient is the insured Medical (General) History Medical History History ICD Code Hypertension Asthma Covid 19 infection, chronic neurologic a nd muscular symptoms Anxiety/depression, PTSD Colonoscopy 06/06 normal, ten-year follo wup Surgical History Surgery Date(Month/Year) hysterectomy back surgery section bunion cataract surgery Hospitalization History Reason Date(Month/Year) due to covid 2019
--- OUTSIDE RECORDS SUMMARY | 2024-12-08 16:06 | XMS_ITS ---
Author Organization [facility] Address [address] [place] [address] Care Team Providers Care Program Medical Director Name Role Phone Patti Cardona M.D. [...] [facility] [address] [place] [phone] 08/26/2023 Ap Sánchez Jr Colon cancer screening [...] Progress Notes * RICHIEJOHNYELITZADOB:1955 (67 yo F)Acc No.[id number]:08/26/2023 Progress Notes Patient:?YELITZA RESENDEZ Provider:?Ap Sánchez MD :1955???Age:67 Y???Sex:Female D ate:08/26/2023 Address:[address] [place], [place] [id number] Pcp:Patti Cardona M.D. Subjective: * Chief Complaints: [...] Sánchez MD Date:?0 08/26/2023 Generated for Fito long/Radha/Zelda on:?12/08/2024 04:06 PM EDT History and Physical Notes * [...]
--- OUTSIDE RECORDS SUMMARY | 2024-12-08 16:07 | XMS_ITS | Clinical Summary ---
Author Organization [facility] Address [address] [place] [address] Phone Care Team Providers Care Flight Agent Name Role Phone Patti Cardona MD Primary Care Provider [phone] Encounters Date Type Department Care Team Description 10/17/2024 7:32 AM EDT - 10/17/2024 11:59 PM EDT Hospital Encounter [facility] Scan [address] [place] [phone] Encounter for screening for malignant neoplasm of respiratory organs; Personal history of nicotine dependence Discharge Disposition: Home or Self Care 09/29/2024 Telephone Lung Screening Program - [place] [address] [phone] Marlyn Calvillo [place] Appointment (1st Notification) 09/23/2024 2:14 PM EST - 09/23/2024 11:59 PM EST Hospital Encounter [facility] [address] [phone] Encounter for screening mammogram for breast cancer [...] age to complete this topic Meningococcal B Vaccine Aged Out No l onger eligible based on patient's age to complete [...] Chest CT in 12 [place] ([id number]) -------- FINAL REPORT -------- Dictated By: Muna Giraldo Dictated Date: 10/19/2024 09:37 ET Assigned Physician: Muna Giraldo Reviewed and Electronically Signed By: Muna Giraldo Signed Date: 10/19/2024 09:49 ET Workstation ID: [id number] Transcribed By: Self Edit Transcribed Date: 10/19/2024 09:37 ET Narrative 10/19/2024 9:49 AM EDT History: ??68 year-old 42 pack-year former smoker, asymptomatic, for lung cancer screening. Quit smoking 12 years ago. Comparison: 10/13/23 Technique: Helical volumetric imaging of the thorax was performed, using low- dose technique, without IV contrast. DLP: 153.48 mGy/cm ??CTDIvol: 4.83 mGy [employer] VCT Iterative reconstruction technique Findings: Lungs and [...] contrast. DLP: 153.48 mGy/cm CTDIvol: 4.83 mGy [employer] VCT Iterative reconstruction technique Findings: Lungs and [...] Chest CT in 12 months. [place] ([id number]) -------- FINAL REPORT -------- Dictated By: Muna Giraldo Dictated Date: 10/19/2024 09:37 ET Assigned Physician: Muna Giraldo Reviewed and Electronically Signed By: Muna Giraldo Signed Date: 10/19/2024 09:49 ET Workstation ID: [id number] Transcribed By: Self Edit Transcribed Date: 10/19/2024 [...] Signed Date: 09/23/2024 17:43 ET Workstation ID: [id number] Transcribed By: Self Edit Transcribed Date: 09/23/2024 [...] Signed Date: 09/23/2024 17:43 ET Workstation ID: [id number] Transcribed By: Self Edit Transcribed Date: 09/23/2024 17:36 ET us Self Referral Sppl IMG BI PROCEDURES Final Resul t from Last 3 Months Insurance [employer] Care Teams Flight Agent Relationship Specialty Start Date End Date Patti Cardona MD [address] [place] [id number] PCP - General Internal Medicine 09/23/24
--- OUTSIDE RECORDS SUMMARY | 2024-12-08 16:07 | XMS_ITS ---
Author Organization [facility] Address [address] [place] [address] Care Team Providers Care Senior Systems Programmer Name Role Phone Patti Cardona M.D. Primary Care Provider Ap De La Torre Jr REASON FOR VISIT looking for results Encounters Encounter Location Date Provider Diagnosis [facility] [address] [place] [phone] 11/18/2023 Ap Sánchez Jr Plan Of Treatment No Information Progress Notes * YELITZA RESENDEZDOB:1955 (68 yo F)Acc No.[id number]:11/18/2023 Patient:?YELITZA RESENDEZ :1955???Age:68 Y???Sex:Female Address:[address] [place] [address] * true * Date:? Generated for Fito long/Radha/eTransmitting on:?12/08/2024 04:06 PM EDT
--- OUTSIDE RECORDS SUMMARY | 2024-12-08 16:07 | XMS_ITS ---
Author Organization [facility] Address [address] [place] [address] Care Team Providers Care Interior Design Faculty Member Name Role Phone Dulce Vickers, Patti Primary Care Provider Ap De La Torre Jr [phone] REASON FOR VISIT screening Encounters Encounter Location Date Provider Diagnosis [facility] [address] [place] [phone] 11/01/2023 Ap Sánchez Jr Encounter for screening colonoscopy Z12.11 and Colon polyps K63.5 Assessments Encounter Date Diagnosis (ICD Code) Assessment Notes Treatment Notes Treatment Clinical Notes Section Notes 11/01/2023 Encounter for screening colonoscopy (ICD-10 - Z12.11) 11/01/2023 Colon polyps (ICD-10 - K63.5) Plan Of Treatment No Information Progress Notes * YELITZA RESENDEZDOB:1955 (69 yo F)Acc No.[id number]:11/01/2023 COLON WITH MAC Patient:?RICHIEJOHNYELITZA Provider:?Ap Sánchez MD :1955???Age:68 Y???Sex:Female D ate:11/01/2023 Address:[address] [place] [address] Pcp:Patti Cardona M.D. Subjective: * Chief Complaints: * ???1. Screening. * Medical History:? Objective: * Vitals:? Assessment: * Assessment: 1.?Encounter for screening c olonoscopy - Z12.11 (Primary)???2.?Colon polyps - K63.5??? Plan: * Treatment: * Procedure Codes:?82529 COLON OSCOPY AND BIOPSY * * The named appointment provid er may or may not be the originator of this progress note, and it is not deemed complete until electronically signed by the appointment provider. Sign off status: Pending * Provider:?Ap Sánchez MD Date:?0 11/01/2023 Generated for Fito long/Radha/Zelda on:?12/08/2024 04:06 PM EDT
== END 2024-12-08 16:00 | disposition home or self-care (01) ==
LOC: HO.HOS 15:07
PROVIDERS: Visit Provider Orthopaedic Surgery
DX: R20.3 Hyperesthesia (principal); L90.5 Scar conditions and fibrosis of skin; S61.259D Open bite of unspecified finger without damage to nail, subsequent encounter; W54.0XXD Bitten by dog, subsequent encounter; R20.0 Anesthesia of skin; R20.2 Paresthesia of skin
CPT/HCPCS: 99213

== ENCOUNTER → 2024-12-08 15:06 | Outpatient (BNVA) | payer MEDICARE, SELFPAY | PROVIDERS: Visit Provider Orthopaedic Surgery | DX: S61.259D Open bite of unspecified finger without damage to nail, subsequent encounter (principal); W54.0XXD Bitten by dog, subsequent encounter; R20.3 Hyperesthesia; R20.0 Anesthesia of skin; R20.2 Paresthesia of skin; L90.5 Scar conditions and fibrosis of skin | CPT/HCPCS: 99212 ==

== ENCOUNTER 2025-01-25 11:03 | Outpatient (AMB) | payer MEDICARE, SELFPAY ==
--- NOTE | 2025-01-25 11:15 | A.OFFPC_ITS ---
Vital Signs 01/25/25 11:19 Height 5 ft 5 in Weight 199 lb BMI 33.1 BP 114/74 Blood Pressure Location Lt brachial Position Sitting Respiration 14 Pulse 85 Pulse Source Pulse Oximeter Temp 97.8 F Temp Source Oral Pulse Oximetry (%) 95 Oxygen Delivery Method Room Air Intake Visit Reasons: follow up Intake Note: Follow up Cataract Lens Generator Required: No Allergies sulfamethoxazole (From Bactrim) Allergy (Verified 01/25/25 11:18) Unknown trimethoprim (From Bactrim) Allergy (Verified 01/25/25 11:18) Unknown Tobacco use date assessed: 10/23/24 Fall risk assessment: 2 + Falls in past year Last assessed Fall Risk: 01/25/25 Dental Screening Dental Screen Date: 10/23/24 Did you have a dental visit in the last 12 months?: Yes Did you have a dental problem in the last 6 months where you did not have access to dental care?: No Was dental information given to patient?: Patient has dentist HPI HPI Comments History of Present Illness Details This is a 69 year old female with a past medical history of long haul COVID-chronic fatigue, joint pain, shortness of breath, brain fog as well as hypertension, presenting for CPE COVID german means-recently completed 8 weeks pulm rehab with good improvement in shortness of breath. Has gained some LE strength, improved breathing technique --Acute infection: 10/2019. Hospitalized 11/2019 at [facility] due to hypoxic rsp faiulre due to COVID pneumonia and persistent high fevers. 106F for days. Severe HAs, muscle pain. Discharged on supplemental 02 --Subacute: Prolonged 02 need. [place] like she had suffered a stroke. Weakness, slow. HAs, sore throats, myalgias. Had MRI brain TTE. Saw ID/covid clinc-OT/PT, speech therapy 12/2019-06/2020. continues LDN --longterm: Brain fog, insomnia, fatigu e, palpitations, body pain, speech and attention deficits. Continue adderall with good effect BH-Follows with Dr Gonzales. Stable on current medications. Feeling well. 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 Dog bite in September. Continues to have some numbness tingling pain in left ring finger but improving with therapy LDCT 2022 Mammo UTD Colon cancer screening [facility] Care team updated- Neurologist, Dr Go has retired. Psych-Dr Christian SAL see HPI PHYSICAL EXAM: GENERAL: Alert and oriented x 3. NAD EYES: EOMI. Anicteric. HENT: Moist mucous membranes. No scleral icterus. No cervical lymphadenopathy. LUNGS: Clear to auscultation bilaterally. CARDIOVASCULAR: Regular rate and rhythm. No murmur. No JVD. ABDOMEN: Soft, non-tender +bs EXTREMITIES: No edema. Non-tender. SKIN: No rashes or lesions. Warm. NEUROLOGIC: No focal neurological deficits. CN II-XII grossly intact PSYCHIATRIC: Cooperative. Appropriate mood and affect PFSH Medical History FH: cholecystectomy Cataract (lens) fragments in eye following cataract surgery, left eye PTSD (post-traumatic stress disorder) Anxiety HTN (hypertension) Surgical History History of bunionectomy History of back surgery History of Hx of colonoscopy Hx of cataract extraction Hx of hysterectomy Family History Brother FH: mental illness Mother Asthma High blood pressure High cholesterol Cardiovascular disease Cancer Father High blood pressure High cholesterol Diabetes Cardiovascular disease Thyroid disease Cancer Social History Housing: House Alcohol intake: current Patient Tobacco Use Status: Former Tobacco user Tobacco use type: Cigarette e-Cigarette/Vaping Use: Never Used Second Hand Smoke Exposure: No service: No Current occupational status: retired 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 Current occupational exposures/hazards: No Cognitive needs: No Hearing needs: No Vision needs: No Questionnaire Thrive Questionnaire Date Thrive assessed: 10/20/24 I am a: Patient What is your living situation today?: I have a steady place to live Within the past 12 months, did the food you bought not last and you didn't have the money to get more?: Never true Within the past 12 months, did you worry whether your food would run out before you got money to buy more?: Never true Do you have trouble paying for medicines?: No Do you have trouble getting transportation to medical appointments?: No Do you have trouble paying your heating and electricity bill?: No Do you have trouble taking care of your child, family member or friend?: No Do you have trouble with day-to-day activities such as bathing, preparing meals, shopping, managing finances, etc.?: No Are you currently unemployed and looking for a job?: I choose not to answer this question Are you interested in more education?: No Please select the resources that you would like help with: None Currently or been in a relationship where the following occur: No concerns reported THRIVE Score: 0 AUDIT C Alcohol Use Questionnaire (AUDIT-C) 1. How often do you have a drink containing alcohol?: 2-4 times a month 2. How many drinks containing alcohol do you have on a typical day when you are drinking?: 1 or 2 3. How often do you have six or more drinks on one occasion?: Never Total Score: 2 SUMAN-7 AMB Questionnaire SUMAN-7 Date SUMAN - 7 assessed: 10/23/24 Source: Developed by Drs. Bg Guevara, Sofia Calvillo, Blake Clifford and colleagues, with an educational patrick from [employer]. Physical exam (Primary Care) Vital Signs: Last Vital Signs Temp 97.8 F 01/25/25 11:19 Pulse 85 01/25/25 11:19 Resp 14 01/25/25 11:19 BP 114/74 01/25/25 11:19 Pulse Ox 95 01/25/25 11:19 Oxygen Delivery Method Room Air 01/25/25 11:19 BMI result Body Mass Index 33.1 Tobacco/Smoking Status: Tobacco use Status Tobacco use date assessed 10/23/24 01/25/25 11:16 Patient Tobacco Use Status Former Tobacco user 01/25/25 11:23 Tobacco use type Cigarette 01/25/25 11:23 e-Cigarette/Vaping Use Never Used 01/25/25 11:23 Thrive Assessment: Date of Thrive Assessment Date Thrive assessed 10/20/24 01/25/25 11:16 Currently or been in a relationship where the following occur: No concerns reported Coding Level of Care Code Est Pt Prev Care >65y(42075) Diagnoses COVID-19 long hauler U09.9 Numbness and tingling in left hand R20.0; R20.2 Assessment & Plan Assessment & Plan (1) COVID-19 german means: Code(s): U09.9 - Post COVID-19 condition, unspecified Category: Medical (2) Numbness and tingling in left hand: Comment: L IF Code(s): R20.0 - Anesthesia of skin; R20.2 - Paresthesia of skin Category: Medical Plan 69 year old for physical exam Interval history reviewed Breathing stable Energy levels stable She can return to work PT without restriction. Orders: Orders Comprehensive Met. Panel Today F41.9 - Anxiety disorder, unspecified, I10 - Essential (primary) hypertension, R26.89 - Other abnormalities of gait and mobility, U09.9 - Post COVID-19 condition, unspecified, Z13.228 - Encounter for screening for other metabolic disorders TSH reflex Free T4 Today F41.9 - Anxiety disorder, unspecified, I10 - Essential (primary) hypertension, R26.89 - Other abnormalities of gait and mobility, U09.9 - Post COVID-19 condition, unspecified, Z13.228 - Encounter for screening for other metabolic disorders Lipid Panel Today Z13.220 - Encounter for screening for lipoid disorders Complete Blood Count Auto Diff Today F41.9 - Anxiety disorder, unspecified, I10 - Essential (primary) hypertension, R26.89 - Other abnormalities of gait and mobility, U09.9 - Post COVID-19 condition, unspecified, Z13.228 - Encounter for screening for other metabolic disorders Hemoglobin A1c Today F41.9 - Anxiety disorder, unspecified, I10 - Essential (primary) hypertension, R26.89 - Other abnormalities of gait and mobility, U09.9 - Post COVID-19 condition, unspecified, Z13.228 - Encounter for screening for other metabolic disorders Vitamin D 25-OH (D2 and D3) Today F41.9 - Anxiety disorder, unspecified, I10 - Essential (primary) hypertension, R26.89 - Other abnormalities of gait and mobility, U09.9 - Post COVID-19 condition, unspecified, Z13.228 - Encounter for screening for other metabolic disorders Medications: New metoprolol tartrate 12.5 mg (1/2 x 25 mg) PO DAILY 90 tabs 1RF
[2025-01-25 11:19] VITALS: BP 114/74; PULSE 85; RESP 14; TEMP 36.6; O2SAT 95; BMI 33.1
--- OUTSIDE RECORDS SUMMARY | 2025-01-25 11:57 | XMS_ITS | Patient Health Record ---
Author Organization [facility] Address [address] [place] [address] Care Team Providers Care Groundskeeping Maintenance Worker Name Role Phone Patti Cardona M.D. Primary Care Provider Darci Sánchez Jr Ap Unavailable Allergies Allergen (clinical drug ingredient) Drug/Non [...] Problem Status W/U Status Risk Notes Problem [id number] Colon cancer screening (Z12.11) Active confirmed Problem 562058614 Encounter for other preprocedural examination (Z01.818) Active confirmed Plan Of Treatment Future Test Test Name Order Date COLONOSCOPY 06/04/2019 COLONOSCOPY 08/26/2023 Insurance Providers Payer Name Payer Address Payer Phone Subscriber Number Group Number Insured Name Patient Relationship to Insured Coverage Start Date Coverage End Date [facility] [address] [place] [phone] [id number] YELITZA RESENDEZ Self - patient is the insured Medical (General) History Medical History History ICD Code Hypertension Asthma Covid 19 infection, chronic neurologic a nd muscular symptoms Anxiety/depression, PTSD Colonoscopy 06/06 normal, ten-year follo wup Surgical History Surgery Date(Month/Year) hysterectomy back surgery section bunion cataract surgery Hospitalization History Reason Date(Month/Year) due to covid 2019
== END 2025-01-25 12:01 | disposition home or self-care (01) ==
LOC: HO.HMCFM 11:04
PROVIDERS: PCP Internal Medicine; Visit Provider Internal Medicine
DX: Z00.00 Encounter for general adult medical examination without abnormal findings (principal); U09.9 Post COVID-19 condition, unspecified; R20.0 Anesthesia of skin; R20.2 Paresthesia of skin

== ENCOUNTER → 2025-01-25 11:03 | Outpatient (BNVA) | payer MEDICARE, SELFPAY | PROVIDERS: PCP Internal Medicine; Visit Provider Internal Medicine | DX: R20.2 Paresthesia of skin (principal); R20.0 Anesthesia of skin; U09.9 Post COVID-19 condition, unspecified | CPT/HCPCS: 99397 ==

== ENCOUNTER 2025-01-27 08:18 | Outpatient (REF) | payer MEDICARE, SELFPAY ==
--- OUTSIDE RECORDS SUMMARY | 2025-01-27 08:21 | XMS_ITS | Patient Health Record ---
Author Organization [facility] Address [address] [place] [address] Care Team Providers Care Filling Hauler Name Role Phone Patti Cardona M.D. Primary Care Provider Darci Sánchez Jr Ap Unavailable [phone] Allergies Allergen (clinical drug ingredient) Drug/Non Drug [...] Problem Status W/U Status Risk Notes Problem 151130108 Colon cancer screening (Z12.11) Active confirmed Problem 487361442 Encounter for other preprocedural examination (Z01.818) Active confirmed Plan Of Treatment Future Test Test Name Order Date COLONOSCOPY 06/04/2019 COLONOSCOPY 08/26/2023 Insurance Providers Payer Name Payer Address Payer Phone Subscriber Number Group Number Insured Name Patient Relationship to Insured Coverage Start Date Coverage End Date [facility] [address] [place] [phone] [id number] YELITZA RESENDEZ Self - patient is the insured Medical (General) History Medical History History ICD Code Hypertension Asthma Covid 19 infection, chronic neurologic a nd muscular symptoms Anxiety/depression, PTSD Colonoscopy 06/06 normal, ten-year follo wup Surgical History Surgery Date(Month/Year) hysterectomy back surgery section bunion cataract surgery Hospitalization History Reason Date(Month/Year) due to covid 2019
--- OUTSIDE RECORDS SUMMARY | 2025-01-27 08:21 | XMS_ITS | Clinical Summary ---
Author Organization [facility] Address [address] [place] [address] Phone Care Team Providers Care Tattoo And Body Artist Name Role Phone Patti Cardona MD Primary Care Provider [phone] Family History Medical History Relation Name Comments [...] Procedure Name Priority Date/Time Associated Diagnosis Comments MG MAMMO DIGITAL SCREENING W LUCIANO BILAT Routine 09/23/2024 2:50 PM EST Encounter for screening mammogram for breast cancer from Last 3 Months or Most Recently Relevant to Health Maintenance Results * MG Mammo Digital Screening w Luciano bilat (09/23/2024 2:50 PM EST) Anatomical Region Laterality Modality Breast Bilateral Mammography 09/23/2024 5:36 PM EST Impressions 09/23/2024 5:43 PM EST No mammographic evidence of malignancy. No suspicious interval change. A negative mammogram in the presence of a clinically suspicious palpable abnormality does not preclude the possibility of malignancy or alter the indications for biopsy. ASSESSMENT: BI-RADS 1: NEGATIVE RECOMMENDATION(S): 1: Routine screening mammogram BILATERAL in 1 year. -------- FINAL REPORT -------- Dictated By: Charlie Suresh Dictated Date: 09/23/2024 17:36 ET Assigned Physician: Charlie Suresh Reviewed and Electronically Signed By: Charlie Suresh Signed Date: 09/23/2024 17:43 ET Workstation ID: [id number] Transcribed By: Self Edit Transcribed Date: 09/23/2024 17:36 ET Narrative 09/23/2024 5:43 PM EST EXAM: SCREENING MAMMOGRAPHY, BILATERAL HISTORY: SCREENING. Maternal grandmother with history of breast cancer. COMPARISON: 08/19/2023, 07/25/2022, 07/20/2021, 06/17/2020 TECHNIQUE: Synthesized CC and MLO projections of each breast. Tomosynthesis of each breast in the CC and MLO projections. ADDITIONAL IMAGING: None Computer-aided detection was employed with the [employer] AI 3-D. TISSUE DENSITY: There are scattered areas of fibroglandular density. (BI-RADS category B) FINDINGS: RIGHT BREAST: No suspicious mass. No suspicious calcification. No distortion. No additional suspicious right breast findings LEFT BREAST: No suspicious mass. No suspicious calcification. No distortion. No additional suspicious left breast findings Procedure [...] Signed Date: 09/23/2024 17:43 ET Workstation ID: [id number] Transcribed By: Self Edit Transcribed Date: 09/23/2024 17:36 ET us Self Referral Sppl IMG BI PROCEDURES Final Resul t from Last 3 Months or Most Recently Relevant to Health Maintenance Insurance [employer] Care Teams Tattoo And Body Artist Relationship Specialty Start Date End Date Patti Cardona MD [address] [place] [id number] PCP - General Internal Medicine 09/23/24
[2025-01-27 11:57] LABS: MANUAL DIFF FLAG NO
[2025-01-27 12:02] LABS: Hematocrit 36.2 % (37.0-47.0); Hemoglobin 12.0 g/dl (12.0-16.0); Imm Gran Abs Auto 0.03 X10*3/uL (0.00-0.03); Imm Gran Pct Auto 0.4 % (0.0-0.4); Lymphocytes Absolute Auto 2.6 X10*3/uL (1.2-4.9); Mean Corpuscular HGB Conc 33.1 g/dl (31.0-35.0); Mean Corpuscular Hemoglobin 28.0 pg (27.0-33.0); Mean Corpuscular Volume 84.6 fL (80.0-98.0); NRBC Abs Auto 0.000 X10*3/uL (0.0-0.012); NRBC Pct Auto 0.0 /100WBC (0.0-0.2); Platelet Count 210 X10*3/uL (160-400); Red Blood Count 4.28 X10*6/uL (4.20-5.50); White Blood Count 7.8 X10*3/uL (4.8-10.8)
[2025-01-27 12:12] LABS: Hemoglobin A1C 129.0416 umol/L; Total Hemoglobin (HGBA1C) 3134.9969 umol/L
[2025-01-27 12:24] LABS: Alanine Aminotransferase 25 U/L (0-31); Albumin Level 3.9 g/dL (3.5-5.0); Alkaline Phosphatase 77 U/L (39-117); Anion Gap 11 (12-20); Aspartate Amino Transferase 25 U/L (5-31); Blood Urea Nitrogen 11 mg/dL (9-16); Calcium 8.6 mg/dL (8.4-10.2); Carbon Dioxide 23 mmol/L (22-29); Chloride 109 mmol/L (96-108); Cholesterol 215 mg/dL (<200); Estimated Glomerular Filt Rate > 60; HDL Cholesterol 47 mg/dL (>40); Potassium 4.0 mmol/L (3.3-5.1); Sodium 139 mmol/L (135-145); Total Protein 6.2 g/dL (6.5-8.0); Triglycerides 201 mg/dL (<150)
[2025-02-01 01:33] LABS: Vitamin D 25-OH, D2 <4 ng/mL; Vitamin D 25-OH, D3 20 ng/mL; Vitamin D 25-OH, Total 20 ng/mL (30-100)
== END 2025-01-27 08:19 | disposition home or self-care (01) ==
LOC: HO.WFDLDS 08:18
PROVIDERS: Visit Provider Internal Medicine
DX: F41.9 Anxiety disorder, unspecified (principal); I10 Essential (primary) hypertension; Z13.228 Encounter for screening for other metabolic disorders; U09.9 Post COVID-19 condition, unspecified; R26.89 Other abnormalities of gait and mobility; Z13.220 Encounter for screening for lipoid disorders
CPT/HCPCS: 36415; 80053; 80061; 82306; 83036; 84443; 85025

== ENCOUNTER 2025-02-02 14:14 | Outpatient (RCR) | payer MEDICARE, SELFPAY ==
--- NOTE | 2025-01-07 12:22 | MHC.OT.EP ---
[address] [phone] Occupational Therapy Plan of Care Patient Name: Carolyn King Date of Evaluation: 01/07/25 Diagnosis: Left index finger pain and numbness Pain Location: Left volar index finger Current: 09/07 With activity: 03/07 Pain Score: 2 Aggravating Factors: Grasp, touch (hypersensitive) Alleviating Factors: Arthritis glove for protection Assessment: Pt is a 69 y/o female referred to OT with left hand index finger pain and stiffness from a dog bite DOI 10/16/24. Currently states she continues to have pain, limited ROM in her index finger and sensitivity. She is noticing avoidant behaviors of leaving the index finger in extension when trying to grasp weights at the gym, driving, or picking up a cup. She experiences shooting pain in the index finger that originates at the base of the wrist and travels to the tip of the finger. Some swelling in the evenings where she is unable to make a fist. Quick DASH score 50% indicating moderate L UE limitation due to injury. Pt was educated in role of OT, POC, and goals. She would benefit from skilled OT services to address noted barriers and normalize hand function. Frequency and Duration: The patient will be seen 2x/wk for 4 weeks Short Term Goals: STG's=LTG's Retirement Goals: Pain free with functional index finger use Pt will be able to make full tight fist to be able to safely lift weights Improve L gross grasp >30# IND with desensitizing and HEP Treatment Plan: Therapeutic Exercise Therapeutic Activity Home Exercise Program Patient Education Desensitization/Sensory Re-ed Ultrasound MHP Joint Mobilization Soft Tissue Mobilization Electronically Signed By: Tammy Rodrigues MS OTR/L Please Sign and return to therapist. Thank you once again for your referral.
--- NOTE | 2025-02-02 14:56 | MHC.OT.DC ---
[address] [phone] F: [phone] Occupational Therapy Discharge Note Patient Name: Carolyn King Provider: Lisa Campbell Diagnosis: Left index finger pain and numbness Date of Evaluation: 01/07/25 Date of Discharge: 02/02/25 Treatments to Date: 4 Discharge Summary: Carolyn was referred to OT s/p dog bit injury on 10/16/24. Pt demonstrates improvement w/ incorporating functional use of left index finger and is able to make full composite fist. Demonstrates good compliance with scar massage and ROM exercises. She continues with pain and hypersensitivity to the radial aspect of her index finger, however at this time, pt. is IND with home program and wishes to self discharge. Electronically Signed By: Tammy Rodrigues MS OTR/L Reviewed/agree with student documentation: Therapist: Please Sign and return to therapist, thank you for your referral.
== END 2025-02-02 15:03 | disposition home or self-care (01) ==
LOC: HO.OTS 14:14
PROVIDERS: Visit Provider Orthopaedic Surgery
DX: R20.3 Hyperesthesia (principal); L90.5 Scar conditions and fibrosis of skin; R20.0 Anesthesia of skin
CPT/HCPCS: 97035; 97110; 97165